=== PATIENT | female | born 1955 | race Caucasian/White ===

== ENCOUNTER → 2017-06-24 15:53 | Outpatient (CLI) | payer OTHER, SELFPAY ==
--- NOTE | 2017-06-24 16:01 | MM_ITS ---
MM Dig screening mamm BI w/CAD CAD Screening ORDERING PHYSICIAN : Keaton Webster MD PATIENT AGE: 62 years GENDER: Female HISTORY. Routine screening mammogram. No hormones . No new complaints. Prior stereotactic biopsy left breast. Family history Sibling sister with breast cancer. Age 41 COMPARISON: Previous mammograms: June 2016, June 2015, May 2014 and 201 3 . TECHNIQUE: Standard CC and MLO images were obtained. R2 CAD reviewed. FINDINGS: Mild to moderate residual thyroid gland elements in the retroareolar region bilaterally. Most evident on right. No dominant mass nor suspicious calcifications. No significant new features. Bilateral follow-up one year adequate. RIGHT BREAST: LEFT BREAST: No new findings concern The. Metallic marker from previous stereotactic biopsy at the upper outer quadrant left breast. IMPRESSION: ...... Stable bilateral mammogram with no new areas of significant concern. Bilateral follow-up in one year recommended. BI-RADS Category: 1 Negative RECOMMENDED FOLLOW-UP: 1YR - 1 YEAR FOLLOW-UP (A letter has been sent to the patient regarding results of the study.)
== END ==
PROVIDERS: PCP Physician Assistant; Visit Provider Nurse Practitioner Obstetrics & Gynecology
DX: Z12.31 Encounter for screening mammogram for malignant neoplasm of breast (principal)
CPT/HCPCS: 77067

== ENCOUNTER → 2018-07-12 15:43 | Outpatient (CLI) | payer OTHER, SELFPAY ==
--- NOTE | 2018-07-12 15:48 | MM_ITS ---
MM Dig screening mamm BI w/CAD ORDERING PHYSICIAN : Keaton Webster MD PATIENT AGE: 63 years GENDER: Female COMPARISON: June 2017, 2016, 2015, May 2014 INDICATION: ITS.REASON: Routine Screening Mammogram TECHNIQUE: Standard CC and MLO images were obtained. R2 CAD reviewed. FINDINGS: .. Minimal residual fibroglandular elements most evident at the retroareolar region extending towards upper-outer quadrant. Stable mild asymmetry with no significant new findings or change in pattern since previous studies. No dominant mass nor suspicious calcifications. RIGHT BREAST:No new areas of concern A density at the deep breast on cc view at margin of film of the present since studies dating back to at least mammogram LEFT BREAST:No new findings of significant concern . Evidence of previous percutaneous biopsy towards upper-outer quadrant with residual metallic marker here Overall stable moderate axillary lymph nodes again observed IMPRESSION: ......... Stable bilateral mammogram. No new areas of concern Bilateral follow-up one year recommended BI-RADS Category: 1 Negative RECOMMENDED FOLLOW-UP: 1YR 1 YEAR FOLLOW-UP (A letter has been sent to the patient regarding results of the study.)
== END ==
PROVIDERS: PCP Family Medicine; Visit Provider Nurse Practitioner Obstetrics & Gynecology
DX: Z12.31 Encounter for screening mammogram for malignant neoplasm of breast (principal)
CPT/HCPCS: 77067

== ENCOUNTER → 2018-11-24 07:51 | Outpatient (CLI) | payer SELFPAY ==
--- NOTE | 2018-11-24 07:53 | CT_ITS ---
PROCEDURE: CT HEART W CALCIUM SCORE CLINICAL HISTORY: SCREENING COMPARISON: No exams were available for comparison TECHNIQUE: Axial images obtained with sagittal and coronal reformats. All CT scans at the facility use one or more dose reduction, viz: automated exposure control, ma/kV adjustment per patient size (including targeted exams where dose is matched to indication, i.e. head), or iterative reconstruction technique. FINDINGS: The coronary artery calcium score is 0 with no identifiable calcified atherosclerotic plaque with very low cardiovascular disease risk. Incidental findings include some mild thickening of the pericardium suggesting small pericardial effusion measuring up to 13 mm in thickness anteriorly. There is a small hiatal hernia. Calcified nodes are present in the giuseppe and there is calcified granuloma in the right middle lobe and right lower lobe and left lower lobe IMPRESSION: No identifiable calcified atherosclerotic plaque with very low cardiovascular disease risk Thickened pericardium consistent with small pericardial effusion Small hiatal hernia Dictated by: Salinas Ibarra MD 11/24/2018 18:36 Electronically signed by Salinas Ibarra MD in [place] 11/24/2018 18:36
== END ==
PROVIDERS: PCP Family Medicine; Visit Provider Internal Medicine Cardiovascular Disease
DX: Z13.6 Encounter for screening for cardiovascular disorders (principal)
CPT/HCPCS: 75571

== ENCOUNTER → 2019-03-08 10:55 | Outpatient (CLI) | payer OTHER, SELFPAY ==
--- NOTE | 2019-03-08 10:59 | XR_ITS ---
PROCEDURE: XR CHEST 2V CLINICAL HISTORY: COUGH COMPARISON: CXR CHEST(2 VIEWS-NOT PORTABLE) from 04/11/2013 FINDINGS: The cardiomediastinal silhouette and pulmonary vascularity are within normal limits. The lungs are clear without infiltrates, suspicious nodules, or pleural effusions. There is evidence of healed granulomatous disease. No acute bony abnormalities. IMPRESSION: No acute findings. Dictated by: Joo Vivas 03/08/2019 11:12 Electronically signed by Joo Vivas in [place] 03/08/2019 11:12
== END ==
PROVIDERS: PCP Family Medicine; Visit Provider Family Medicine
DX: R05 Cough (principal)
CPT/HCPCS: 71046

== ENCOUNTER → 2019-07-02 11:19 | Outpatient (CLI) | payer OTHER, SELFPAY ==
[2019-07-02 12:05] VITALS: PULSE 83; PULSE 86
== END ==
PROVIDERS: PCP Family Medicine; Visit Provider Family Medicine
DX: R05 Cough (principal)
CPT/HCPCS: 94060; 94640

== ENCOUNTER → 2019-07-23 15:52 | Outpatient (CLI) | payer OTHER, SELFPAY ==
--- NOTE | 2019-07-23 15:52 | MM_ITS ---
PROCEDURE: MM DIG SCREENING MAMM BI W/CAD Digital Breast Tomosynthesis Included CLINICAL INDICATION: screening xmg There is a history of breast cancer in patient's sister diagnosed before menopause. There has been a previous biopsy left breast for benign disease. COMPARISON: [facility] DIG MAMM-SCREEN [facility] W/CAD from 06/17/2016 [facility] MM Dig screening mamm BI w/CAD from 06/24/2017 DIG MAMM-SCREEN [place] from 07/12/2018 TECHNIQUE: Standard CC and MLO images and 3D Tomosynthesis was obtained. R2 CAD reviewed. FINDINGS: The breasts are composed primarily of fat with minimal scattered fibroglandular densities in each breast. There is a biopsy clip left breast. There is no suspicious lesion in either breast and no suspicious microcalcifications. There are stable small nodes in both axilla. IMPRESSION: Fatty type breast parenchyma with no suspicious lesions seen BI-RAD Category: 2 Benign Finding(s) FOLLOW-UP: 1YR 1 Year Follow-up (A letter has been sent to the patient regarding results of the study.) Dictated by: Dr. Aamir Horton MD 07/24/2019 11:[address] Aamir Horton MD in [place] 07/24/2019 11:07
== END ==
PROVIDERS: PCP Family Medicine; Visit Provider Nurse Practitioner Obstetrics & Gynecology
DX: Z12.31 Encounter for screening mammogram for malignant neoplasm of breast (principal)
CPT/HCPCS: 77063; 77067

== ENCOUNTER → 2020-08-06 15:20 | Outpatient (CLI) | payer OTHER, SELFPAY ==
--- NOTE | 2020-08-06 15:20 | MM_ITS ---
PROCEDURE INFORMATION: Exam: MG Screening 3D Mammography Exam date and time: 08/06/2020 3:20 PM Age: 65 years old Clinical indication: Encounter for screening mammogram for malignant neoplasm of breast TECHNIQUE: Imaging protocol: Screening tomosynthesis and 2D mammography including computer-aided detection (CAD) when performed. COMPARISON: 1. MG MM DIG SCREENING MAMM BI W/CAD 07/23/2019 4:07 PM 2. MG DIG MAMM-SCREEN [place] 07/12/2018 4:10 PM FINDINGS: MAMMOGRAPHY: Breast composition: The breast tissue is composed of scattered areas of fibroglandular density. Mass: None. Architectural distortion: None. Calcifications: No suspicious calcifications. Asymmetric density: None. Skin thickening: None. Axillary adenopathy: None. IMPRESSION: No mammographic evidence of malignancy. Annual screening is recommended unless otherwise clinically indicated. ASSESSMENT: BI-RADS Category 1: Negative
== END ==
PROVIDERS: PCP Family Medicine; Visit Provider Nurse Practitioner Obstetrics & Gynecology
DX: Z12.31 Encounter for screening mammogram for malignant neoplasm of breast (principal)
CPT/HCPCS: 77063; 77067

== ENCOUNTER → 2021-01-10 09:46 | Outpatient (CLI) | payer OTHER, SELFPAY ==
[2021-01-10 10:26] LABS: Basophils # 0.1 K/mm3 (0-0.2); Basophils % 1.3 % (0.1-2.0); Eosinophils # 0.2 K/mm3 (0.0-0.4); Eosinophils % 3.6 % (0.1-12.0); Hematocrit 40.8 % (37.0-47.0); Hemoglobin 13.6 g/dL (12.2-16.2); Lymphocytes # 1.1 K/mm3 (0.7-4.5); Lymphocytes % 26.5 % (10-50); Mean Corpuscular HGB Conc 33.3 g/dL (31.8-35.4); Mean Corpuscular Hemoglobin 29.1 pg (27.0-31.2); Mean Corpuscular Volume 87.3 fl (81-99); Mean Platelet Volume 7.8 fl (7.4-10.4); Monocytes # 0.5 K/mm3 (0.1-1.0); Monocytes % 12.3 % (1.7-9.3); Neutrophils # 2.3 K/mm3 (1.8-7.8); Neutrophils % 56.4 % (37.0-80.0); Platelet Count 252 K/mm3 (142-424); Red Blood Count 4.67 M/mm3 (4.20-5.40); Red Cell Distribution Width 13.7 % (11.5-17.5); White Blood Count 4.1 K/mm3 (4.8-10.8)
== END ==
PROVIDERS: Visit Provider Physician Assistant
DX: J06.9 Acute upper respiratory infection, unspecified (principal)
CPT/HCPCS: 36415; 85025

== ENCOUNTER → 2021-01-10 12:25 | Outpatient (CLI) | payer OTHER, SELFPAY | PROVIDERS: PCP Family Medicine; Visit Provider Physician Assistant | DX: Z20.822 Contact with and (suspected) exposure to COVID-19 (principal); J06.9 Acute upper respiratory infection, unspecified | CPT/HCPCS: C9803; U0003; U0005 ==

== ENCOUNTER → 2021-04-15 06:41 | Outpatient (CLI) | payer OTHER, SELFPAY ==
--- NOTE | 2021-04-15 | CA_ITS ---
APPROVED REPORT Exam: Exercise Treadmill Technologist: Tsering Cisneros, Ht: 5 ft 2 in Wt: 187 lbs BSA: 1.86 m2 HR: 63 bpm BP: 152/76 mmHg Rhythm: NSR, low voltage QRS Medical History Medical History: HTN, Hyperlipidemia Medications: Omeprazole,,,,, Simvastatin,,,,, Losartan,,,,, HCTZ,,,,, Albuterol,,,,, Flovent,,,,, Cardiac Risk Factors: HTN, Hyperlipidemia, FHX of CAD, Smoking Stress Test Details Test: Rich HR Resting HR: 70 bpm Max Heart Rate (APMHR): 154.507744 bpm Max HR Achieved: 141 bpm Target HR (85% APMHR): 130.684191 bpm % of APMHR: 91.56 Recovery HR: 106 bpm BP Resting BP: 138/71 mmHg Max BP: 208/80 mmHg Recovery BP: 208.0/80.0 mmHg ECG Resting ECG: NSR, low voltage QRS Clinical Exercise duration: 07:00 min Highest Stage Achieved: Exercise capacity: 10.1 METs Stress ECG Conclusion During rich protocol pt walked total of 7 minutes. Pt experinced dyspnea, no CP noted. No arrthymias noted. 1mm slightly upsloding ST depression in leads V5 and V6. Equivocal EKG changes. Myoview images reported separately. Test Summary REST . . . . . . . Sitting REST . . . . . . . Standing REST 04:06 0.0 0.0 70 . 138/ 71 . . Stage 1 01:00 10.0 1.7 91 . . . . Stage 1 02:00 10.0 1.7 112 . . . . Stage 1 03:00 10.0 1.7 115 . 182/ 75 . . Stage 2 01:00 12.0 2.5 121 . . . . Stage 2 02:00 12.0 2.5 129 . . . . Stage 2 03:00 12.0 2.5 130 . 200/ 70 . . Stage 3 01:00 14.0 3.4 140 . . . Stop exercise at 07:00 RECOVERY 01:00 0.0 0.0 109 . . . . RECOVERY 02:00 0.0 0.0 93 . 208/ 80 . . RECOVERY 03:00 0.0 0.0 78 . 202/ 66 . . RECOVERY 04:00 0.0 0.0 76 . 202/ 66 . . RECOVERY 05:00 0.0 0.0 75 . 202/ 66 . . RECOVERY 06:00 0.0 0.0 74 . 170/ 67 . . RECOVERY 07:00 0.0 0.0 71 . 170/ 67 . . RECOVERY 07:55 0.0 0.0 70 . 171/ 57 . . Electronically signed by : Nathen Grewal MD 04/15/2021 19:55:47
--- NOTE | 2021-04-15 06:52 | NM_ITS ---
APPROVED REPORT Exam: Nuclear Stress Test Indication: SOB, Palpitations, HTN, High cholesterol, Family history Patient Location: Outpatient Stress Tech: Tsering Brady [place] Tech:Pili Sifuentes, ARRT, RT (R)(N) Ht: 5 ft 2 in Wt: 198 lbs Bra Size: 40C HR: 70 bpm BP: 138/71 mmHg BSA: 1.90 m2 BMI: 36.2 History: SOB, Palpitations, HTN, High cholesterol, Family history Procedure: Patient exercised on Jordi protocol 7:00 minutes and sec, resting heart rate 70 bpm, resting blood pressure 138/71 mmHg, with exercise maximum heart rate achived was 141 bpm which is 92 % of the maximum predicted heart rate and blood pressure was 208/80 mmHg. Test was stopped due to SOB and leg fatigue. Patient denied any complaint of chest pain. Patient has good exercise capacity, achieved 10.1 METs of workload on treadmill, the blood pressure response to exercise was Hypertensive. Electrocardiogram Resting electrocardiogram shows sinus rhythm, with exercise there is less than 1.[address] segment depression noted from the baseline EKG. The EKG portion of the exercise Myoview is negative for ischemia. Cardiac Stress and Resting SPECT Images: Cardiac Stress and Resting SPECT images were obtained using technetium 99m Myoview 31.1 mCi stress and 10.37 mCi at rest. Gated SPECT for analysis of segmental wall motion and calculation of the ejection fraction also done. Cardiac stress and resting SPECT images show uniform myocardial activity without segmental perfusion abnormality, compared right ejection fraction is 61% with no regional wall motion abnormality, right ventricle is normal size and contractility. Conclusion: 1. The EKG portion of the exercise Myoview is negative for ischemia, patient has good exercise capacity achieved 10.1 METs of workload treadmill, the blood pressure response to exercise was hypertensive, there was no exercise-induced chest discomfort. 2. No scintigraphic evidence of reversible ischemia seen at this level of exercise, compared right ejection fraction is 61% with no regional wall motion abnormality, right ventricle is normal size and contractility. 3. Normal exercise Myoview study except for hypertensive blood pressure response. Electronically signed by : Nathen Grewal MD 04/15/2021 20:11:02
--- NOTE | 2021-04-15 08:35 | HMH.ITSHM ---
Current Home Medications as stated by this patient Joselin Reece or promotional representative. []SIMVASTATIN PHENTERMINE OMEPRAZOLE LOSARTAN HCTZ FLUTICASONE ALBUTEROL
== END ==
PROVIDERS: PCP Family Medicine; Visit Provider Family Medicine
DX: R07.89 Other chest pain (principal)
CPT/HCPCS: 78452; 93017; A9502

== ENCOUNTER → 2021-08-07 07:55 | Outpatient (CLI) | payer OTHER, SELFPAY ==
--- NOTE | 2021-08-07 07:55 | MM_ITS ---
PROCEDURE INFORMATION: Exam: MG Bilateral Screening 3D Mammography Exam date and time: 08/07/2021 7:57 AM Age: 66 years old Clinical indication: Screening examination TECHNIQUE: Imaging protocol: Bilateral Screening tomosynthesis and 2D mammography including computer-aided detection (CAD) when performed. COMPARISON: 1. MG MM DIG SCREENING MAMM BI W/CAD 08/06/2020 3:20 PM 2. MG MM DIG SCREENING MAMM BI W/CAD 07/23/2019 4:07 PM FINDINGS: MAMMOGRAPHY: Breast composition: There are scattered areas of fibroglandular density. Mass: None. Architectural distortion: None. Calcifications: No suspicious calcifications. Asymmetric density: None. Skin thickening: None. Axillary adenopathy: None. IMPRESSION: No mammographic evidence of malignancy. Annual screening is recommended unless otherwise clinically indicated. ASSESSMENT: BI-RADS Category 1: Negative
== END ==
PROVIDERS: PCP Family Medicine; Visit Provider Nurse Practitioner Obstetrics & Gynecology
DX: Z12.31 Encounter for screening mammogram for malignant neoplasm of breast (principal)
CPT/HCPCS: 77063; 77067

== ENCOUNTER → 2022-07-09 09:15 | Outpatient (CLI) | payer MEDICARE, OTHER, SELFPAY ==
--- NOTE | 2022-07-09 09:19 | XR_ITS ---
FINAL REPORT TECHNIQUE: Bone densitometry calculations of the lumbar spine and left hip were obtained. CLINICAL HISTORY: post menopausal FINDINGS: Using L1-4, the bone mineral density of the spine is 1.004 g/cm2, corresponding to T-score of -0.4. Using the left hip, the bone mineral density of the femoral neck is 0.957 g/cm2, corresponding to a T-score of 0.1. Using the right hip, the bone mineral density of the femoral neck is 0.895 g/cm2, corresponding to a T-score of 0.4. NOTE: T-score: Standard deviation compared with peak bone mass of young adult mean. *Following the recommendations of the International Society of Bone densitometry, classification of hip BMD is based on the lower of two T-scores; total hip or femoral neck. IMPRESSION: Normal bone mineral density of the lumbar spine and hip. FRAX was not reported because all of the T-scores are at or above -1.0. Reviewed, Interpreted and Dictated by Micha Paris MD Transcribed by Lianna Laguerre Authenticated and [facility]
== END ==
PROVIDERS: PCP Physician Assistant; Visit Provider Family Medicine
DX: Z78.0 Asymptomatic menopausal state (principal)
CPT/HCPCS: 77080

== ENCOUNTER → 2022-07-13 10:20 | Outpatient (CLI) | payer MEDICARE, OTHER, SELFPAY ==
--- NOTE | 2022-07-13 10:23 | XR_ITS ---
FINAL REPORT CLINICAL HISTORY: trigger thumb COMPARISON: None FINDINGS: RIGHT HAND Three views demonstrate no acute fracture or dislocation. There are mild degenerative changes of the distal interphalangeal and proximal interphalangeal joints. There is moderate degenerative change of the 1st interphalangeal joint. Osteophytes are present in multiple digits compatible with mild to moderate osteoarthritis. The soft tissues are unremarkable. IMPRESSION: No acute bony abnormality. Degenerative changes as described above. Reviewed, Interpreted and Dictated by Micha Paris MD Transcribed by Lennie Mcgee Authenticated and [facility]
== END ==
PROVIDERS: PCP Family Medicine; Visit Provider Orthopaedic Surgery
DX: M65.30 Trigger finger, unspecified finger (principal)
CPT/HCPCS: 73130

== ENCOUNTER → 2022-10-15 12:48 | Outpatient (CLI) | payer MEDICARE, OTHER, SELFPAY ==
--- NOTE | 2022-10-15 12:48 | MM_ITS ---
PROCEDURE INFORMATION: Exam: MG Bilateral Screening 3D Mammography Exam date and time: 10/15/2022 12:53 PM Age: 67 years old Clinical indication: Screening mammogram. Family history of breast cancer in sister; Sister's age: 41 years TECHNIQUE: Imaging protocol: Bilateral Screening tomosynthesis and 2D mammography including computer-aided detection (CAD) when performed. COMPARISON: 1. MG MM DIG SCREENING MAMM BI W/CAD 08/07/2021 7:57 AM 2. MG MM DIG SCREENING MAMM BI W/CAD 08/06/2020 3:20 PM 3. MG MM DIG SCREENING MAMM BI W/CAD 07/23/2019 4:07 PM 4. MG DIG MAMM-SCREEN [place] 07/12/2018 4:10 PM FINDINGS: MAMMOGRAPHY: Breast composition: There are scattered areas of fibroglandular density. Mass: None. Architectural distortion: No new or suspicious architectural distortion. Calcifications: No new or suspicious calcifications are present Asymmetric density: No new or suspicious asymmetric density is present Skin thickening: None. Axillary adenopathy: None. IMPRESSION: No mammographic evidence of malignancy. Recommend annual screening mammography unless otherwise clinically indicated. ASSESSMENT: BI-RADS category 1: Negative
== END ==
PROVIDERS: PCP Family Medicine; Visit Provider Nurse Practitioner Obstetrics & Gynecology
DX: Z12.31 Encounter for screening mammogram for malignant neoplasm of breast (principal)
CPT/HCPCS: 77063; 77067

== ENCOUNTER → 2022-11-03 10:07 | Outpatient (CLI) | payer MEDICARE, OTHER, SELFPAY ==
[2022-10-13 14:06] LABS: Basophils % 0.7 % (0.1-2.0); Eosinophils # 0.1 K/mm3 (0.0-0.4); Eosinophils % 3.2 % (0.1-12.0); Hematocrit 40.1 % (37.0-47.0); Hemoglobin 13.4 g/dL (12.2-16.2); Lymphocytes # 1.1 K/mm3 (0.7-4.5); Lymphocytes % 25.1 % (10-50); Mean Corpuscular HGB Conc 33.3 g/dL (31.8-35.4); Mean Corpuscular Hemoglobin 29.3 pg (27.0-31.2); Mean Corpuscular Volume 88.1 fl (81-99); Mean Platelet Volume 7.9 fl (7.4-10.4); Monocytes # 0.4 K/mm3 (0.1-1.0); Neutrophils # 2.8 K/mm3 (1.8-7.8); Neutrophils % 62.9 % (37.0-80.0); Platelet Count 281 K/mm3 (142-424); Red Blood Count 4.56 M/mm3 (4.20-5.40); Red Cell Distribution Width 13.3 % (11.5-17.5); White Blood Count 4.5 K/mm3 (4.8-10.8)
[2022-10-13 14:23] LABS: Chol/HDL Ratio 3.4 (1-3.5); Cholesterol 192 mg/dl (140-200); HDL Cholesterol 57 mg/dl (40-60); Triglycerides 95 mg/dl (30-150); VLDL Cholesterol 19 mg/dL (0-40)
[2022-10-13 14:41] LABS: 25-OH Vitamin D, Total 22.5 ng/mL (30-100)
[2022-10-13 14:56] LABS: Thyroid Stimulating Hormone 2.07 uIU/mL (0.465-4.68)
[2022-10-14 00:28] LABS: Hemoglobin A1C 5.6 % (4.0-6.0)
== END ==
PROVIDERS: PCP Emergency Medicine; Visit Provider Emergency Medicine
DX: E66.9 Obesity, unspecified (principal); Z68.34 Body mass index [BMI] 34.0-34.9, adult; R73.03 Prediabetes; E55.9 Vitamin D deficiency, unspecified
CPT/HCPCS: 80061; 82306; 83036; 84443; 85025

== ENCOUNTER 2023-05-19 09:00 | Day surgery (SDC) | payer MEDICARE, OTHER, SELFPAY ==
[2023-05-16 14:14] VITALS: BMI 34.4
[2023-05-19 09:14] VITALS: BP 159/77; PULSE 63; RESP 18; TEMP 36.2; O2SAT 97
[2023-05-19] MEDS: LACTATED RINGERS 1000ML 1,000 ML 100 ML IV (09:24)
--- NOTE | 2023-05-19 09:44 | EXP.ANES.CKL ---
[facility] Disclaimer: The information contained in this section may have been updated after the patient was seen, as this information can be updated by other users. Medical History Anxiety and depression History of trigger finger History of gastroesophageal reflux (GERD) Hyperlipidemia Hypertension BMI 36.0-36.9,adult Surgical History Hx of tubal ligation History of cholecystectomy History of appendectomy Family History Other Brain tumor Cancer Social History Smoking Status: Former smoker tobacco type: cigarettes alcohol intake: current substance use type: denies use current occupational status: retired Travel in the last 8 weeks: None housing: house caffeine: Yes [facility] Anesthesia Checklist Patient Identification Patient Identification: Arm Band, Family and Verbal (Name & ) Structural Data Admitted From: Home Planned Operative Procedure/s: Colonoscopy Consent for Planned Operative Procedure(s) Verified: Yes Verified Documents: Surgical Consent and History and Physical NPO Status Verified Time NPO: 04:30 Chart Verification Results Verified: CBC and Chest Xray Additional verifications Patient : No Anesthesia Reactions: No Cardiovascular Assessment Heart Sounds: S1 & S2 Pulse Rhythm: Irregular Peripheral Edema: No Airway Assessment Mallampati Score:: Class II C-Spine Mobility Assessed: Yes (FROM) TMJ Mobility Assessed: Yes Dentition: Good Dentition (Nothing loose per pt.) Neurological Assessment Level of Consciousness: Awake, Alert, Appropriate and Follows Commands Hx Seizures: No Numbness or tingling in extremities: No Anesthesia Plan Anesthesia Risk discussed: Yes Anesthesia Plan: Verified ASA Class: III Anesthesia Type: MAC
[2023-05-19 10:12] VITALS: O2SAT 100
--- NOTE | 2023-05-19 10:23 | HMH.SCOPE ---
Procedure: Date: 05/19/23 Patient Date of :: 1955 Procedure Performed:: Screening colonoscopy Indications:: Personal history of polyps Performing Provider:: Alia Campoverde MD Referring Provider:: Zachary Luevano MD Sedation:: Propofol Procedure:: After placing the patient in the left lateral decubitus position, the colonoscopy was gently inserted into the rectum and under direct visualization advanced to the cecum which was identified by transillumination in the right lower quadrant, identification of the ileocecal valve, appendiceal orifice, and cecal strap. Color, texture, mucosa, and anatomy of the colon were carefully examined with the scope. Findings:: Anal canal: normal Rectum: normal Sigmoid colon: normal without polyps or inflammatory changes, diverticulosis Descending colon: normal without polyps or inflammatory changes Splenic flexure: normal Transverse colon: normal without polyps or inflammatory changes Hepatic flexure: normal Ascending colon: normal without polyps or inflammatory changes Cecum: normal Terminal ileum: not visualized Impression: Sigmoid diverticulosis otherwise normal colonoscopy exam Recommendations:: Follow up examination in about FIVE years or so, sooner if clinically indicated in view of history of polyps. Complications:: None Estimated blood obtained (mL): 0 Colonoscopy Component Colonoscopy Component Was a colonoscopy performed during today's procedure?: Yes Recommended follow up colonoscopy of at least 10 years?: No If no, follow up colonoscopy recommended in ___ years?: Five Reason for not recommending >/= 10 yr follow-up interval?: Hx of polyps
[2023-05-19 10:24] VITALS: BP 105/55; PULSE 71; RESP 18; TEMP 36.4; O2SAT 95
[2023-05-19 10:34] VITALS: BP 103/53; PULSE 67; RESP 16; O2SAT 94
[2023-05-19 10:44] VITALS: BP 108/49; PULSE 69; RESP 16; O2SAT 96
[2023-05-19 10:54] VITALS: BP 110/61; PULSE 73; RESP 16; TEMP 36.7; O2SAT 98
== END 2023-05-19 10:54 | disposition home or self-care (01) ==
PROVIDERS: PCP Family Medicine; Visit Provider Internal Medicine Gastroenterology
PROC: (CPT G0105; principal; 2023-05-19 10:00)
DX: Z12.11 Encounter for screening for malignant neoplasm of colon (principal); Z86.010 Personal history of colon polyps; K57.30 Diverticulosis of large intestine without perforation or abscess without bleeding
CPT/HCPCS: G0105

== ENCOUNTER 2023-11-15 07:50 | Outpatient (CLI) | payer MEDICARE, OTHER, SELFPAY ==
--- NOTE | 2023-11-15 07:53 | MM_ITS ---
PROCEDURE INFORMATION: Exam: MG Bilateral Screening 3D Mammography Exam date and time: 11/15/2023 7:54 AM Age: 68 years old Clinical indication: Screening examination TECHNIQUE: Imaging protocol: Bilateral Screening tomosynthesis and 2D mammography including computer-aided detection (CAD) when performed. COMPARISON: 1. MG MM DIG SCREENING MAMM BI W/CAD 10/15/2022 12:53 PM 2. MG MM DIG SCREENING MAMM BI W/CAD 08/07/2021 7:57 AM FINDINGS: MAMMOGRAPHY: Breast composition: There are scattered areas of fibroglandular density. Mass: No suspicious masses. Architectural distortion: None. Calcifications: No suspicious calcifications. Asymmetric density: None. Skin thickening: None. Axillary adenopathy: None. IMPRESSION: No mammographic evidence of malignancy. Annual screening is recommended unless otherwise clinically indicated. ASSESSMENT: BI-RADS Category 1: Negative.
== END 2023-11-15 23:59 | disposition home or self-care (01) ==
LOC: RAD 07:51
PROVIDERS: PCP Family Medicine; Visit Provider Family Medicine
DX: Z12.31 Encounter for screening mammogram for malignant neoplasm of breast (principal)
CPT/HCPCS: 77063; 77067

== ENCOUNTER 2024-09-12 08:22 | Outpatient (CLI) | payer MEDICARE, OTHER, SELFPAY ==
--- OUTSIDE RECORDS SUMMARY | 2024-05-11 05:15 | XMS_ITS ---
Author Organization [facility] Address [address] [place] [id number] Care Team Providers Care Leather Scraper Name Role Phone Esteban Smith Primary Care Provider Zachary Luevano Unavailable [phone] Allergies Allergen (clinical drug ingredient) Drug/Non Drug Allergy documented on EMR Reaction Allergy Type Onset Date Status Oxytetracycline HCl Unknown Drug Allergy Active Adhesive Unknown Allergy Active codeine Codeine Unknown Drug Allergy Active Results Component Value Reference Range Notes Glucose (In-House) Reviewed date:05/13/2024 11:44:25 AM Interpretation:121 Performing Lab: Notes/Report: 121 blood glucose 121 74 - 106 mg/dL P-Comprehensive Metabolic Pa saida ([facility]) Reviewed date:05/13/2024 11:44:25 AM Interpretation: Normal Performing Lab: Notes/Report: Test performed by [facility] , [address], [place] [address] Michael Rabago MD, Manager Cost CLIA: [id number] Sodium 142 135-145 mmol/L Potassium 4.3 3.5-5.3 [...] Interpretation:5.8 Performing Lab: Notes/Report: Test performed by [facility] [address] [place] [address] [address] C, [place] [address] Michael Rabago MD, Manager Cost CLIA: [id number] Hemoglobin A1C 5.8 <5.7 % The following HbA1c ranges recommended by the [place] [employer] (ADA) may be used as an aid in the diagnosis of diabetes mellitus. HbA1c Suggested Diagnosis >=6.5% Diabetic 5.7% - 6.4% Pre-Diabetic <5.7% Non-Diabetic P-Lipid Panel Reviewed date:05/13/2024 11:44:25 AM Interpretation:chol 207, non-hdl 148 Performing Lab: Notes/Report: Test performed by [facility] [address] [place] [address] [address], [place] [address] Michael Rabago MD, Manager Cost CLIA: [id number] Cholesterol 207 <200 mg/dL Triglycerides 106 <150 [...] Normal Performing Lab: Notes/Report: Test performed by [facility] [address] [place] [address] , [place] [address] Michael Rabago MD, Manager Cost CLIA: [id number] TSH reflex to FT4 3.36 0.43-5.25 mU/L P-Microalbumin/Creatinine, R andom Urine Sample Reviewed date:05/13/2024 11:44:25 AM Interpretation: Normal Performing Lab: Notes/Report: Test performed by [facility] [address] [place] [address] , [address], [place] [address] Michael Rabago MD, Manager Cost CLIA: [id number] Albumin/Creatinine Ratio, Urine 5 0-30 ug/m g Microalbumin, Urine, Random 0.7 Creatinine, Urine 140.2 P-Vitamin D 25-Hydroxy Reviewed date:05/13/2024 11:44:25 AM Interpretation: Normal Performing Lab: Notes/Report: Test performed by [facility], [address] , [address], [place] [address] Michael Rabago MD, Manager Cost CLIA: [id number] Vitamin D 25-Hydroxy 64.7 30.0-100.0 ng/mL Interpretation of Vitamin D 25 OH: < 20 ng/mL - Deficiency 20 - 29 ng/mL - Insufficiency 30 - 100 ng/mL - Sufficiency > 100 ng/mL - Super-therapeutic- toxicity may occur above this level. Clinical correlation required. Estimated Average Glucose Reviewed date:05/13/2024 11:44:25 AM Interpretation: Normal Performing Lab: Notes/Report: Test performed by [facility] [address] [place] [address] , [address], [place] [address] Michael Rabago MD, Manager Cost CLIA: [id number] Estimated Average Glucose (eAG) 120 Estimated Average [...] Duration: 90 days Active Vitamin D (Ergocalciferol) 03432 UNIT 1 capsule Orally Once Weekly Active [...] [address] [place], [place] [id number] 05/11/2024 Zachary Luevano Essential hypertensi on, hypertension [...] 6 Months, Reason: Provider Name:Zachary Matthews , 11/12/2024 09:30:00 AM, [address] [facility], [address], [place], [place], [id number], Progress Notes * ROSITA CHAVEZ ADOB:[birth year] (69 yo F)Acc No.[id number]:05/11/2024 Progress Notes Patient: ROSITA MONSON Provider: Carlota Luevano M.D. 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 * Surgical History: T ubal Ligation 1993, Appendectomy 1974, EGD 2011, Cholecystectomy 12/13/2011, Colonoscopy - 1 Polyp 07/2017, Trigger Thumb Steriod Injection 08/2017, Trigger Thumb Release 01/24/2018. * Hospitalization/Major Diagno stic Procedure: C hest Pains,Esophagal Spasms- [facility] 04/11/2013. * Family History: F [...] ONCE DAILY , Taking Vitamin D (Ergocalciferol) 83674 UNIT Capsule 1 capsule Orally Once Weekly [...] stimated Average Glucose 120 - mg/dL * [facility], support 05/12/2024 04:20:06 : This order was created by the Interface. Anh De Jesus 05/13/2024 11:44:17 AM >See phone encounter * Procedure Codes: G 2211 Complex e/[place], [address] GLUCOSE TEST, 3044F HG A1C LEVEL LT 7.0%, 3074F SYST BP LT 130 MM HG, 3078F DIAST BP < 80 MM HG * Follow Up: 6 Months * Images: Billing Information: * Visit Code: 70521 Office Visit, Est Pt., Level 4. * Procedure Codes: G2211 Complex e/[place]. [address] GLUCOSE TEST. 3044F HG A1C LEVEL LT 7.0%. 3074F SYST BP LT 130 MM HG. 3078F DIAST BP < 80 MM HG. * Electronic signature of Melisa Luevano MD on 09/12/2024 at 08:27 AM EDT Sign off status: Pending * Provider: Carlota Luevano M.D. Date: 0 05/11/2024 Generated for Eliezer martin/Val/eTransmitting on: 0 09/12/2024 08:27 AM EDT History and Physical Notes * [...]
--- OUTSIDE RECORDS SUMMARY | 2024-05-21 06:30 | XMS_ITS ---
Author Organization [facility] Address [address] [place] [id number] Care Team Providers Care Title Specialist Name Role Phone Esteban Smith Primary Care Provider Zachary Luevano Unavailable [phone] Liza Dumont Unavailable [phone] Allergies Allergen (clinical drug ingredient) Drug/Non Drug Allergy documented on EMR Reaction Allergy Type Onset Date Status Oxytetracycline HCl Unknown Drug Allergy Active Adhesive Unknown Allergy Active codeine Codeine Unknown Drug Allergy Active REASON FOR VISIT sinus, drainage Medications Medication SIG (Take, Route, Frequency, Duration) Notes Start Date End Date Status Simvastatin 40 MG TAKE 1 TABLET ONCE D AILY INTHE EVENING AT BEDTIME; Duration: 90 days Active Ziprasidone HCl 20 MG TAKE 1 CAPSULE ONC E DAILY WITH FOOD; Duration: 90 days Active Irbesartan-hydroCHLOROthiaz terese 300-12.5 MG TAKE 1 TABLET ONCE DAILY; Duration: 90 days Active Medrol 4 MG as directed orally d aily; Duration: 6 days 05/21/2024 Active Metoprolol Succinate ER 50 MG TAKE 1 TABLET ONCE DAILY; Duration: 90 days Active Cefuroxime Axetil 500 MG 1 tablet Orally every 12 hrs; Duration: 10 day(s) 05/21/2024 Active Vitamin D (Ergocalciferol) 72101 UNIT 1 capsule Orally Once Weekly Active Voquezna 10 MG 1 tablet Orally Once a day; Duration: 30 day(s) 05/11/2024 Active Vital Signs Blood pressure systolic 124 mm Hg 05/22/19 25 Blood pressure diastolic 76 mm Hg 025 Heart Rate 57 /min 05/21/2024 Height 62.50 in 05/21/2024 Weight 184.2 lbs 05/21/2024 BMI 33.15 kg/m2 05/21/2024 Encounters Encounter Location Date Provider Diagnosis [facility] [address] [place] [address] 36 [facility] [address] [place], [place] [id number] 05/21/2024 Liza Dumont Sinusitis, acute J01.90 Assessments Encounter Date Diagnosis (ICD Code) Assessment Notes Treatment Notes Treatment Clinical Notes Section Notes 05/21/2024 Sinusitis, acute (ICD-10 - J01.90) fluids, rest, supportive measures for fever/symptom relief Plan Of Treatment Medication Medication Name Sig Start Date Stop Date Notes Medrol 4 MG as directed orally d aily; Duration: 6 days 05/21/2024 Cefuroxime Axetil 500 MG 1 tablet Orally every 12 hrs; Duration: 10 day(s) 05/21/2024 Treatment Notes Assessment Notes Sinusitis, acute fluids, rest, suppor tive measures for fever/symptom relief Next Appt Details Follow Up: prn, Reason: Provider Name:Zachary Matthews ry, 11/12/2024 09:30:00 AM, [address] [place] [address] 36 [facility], [address], [place], [place], [id number], Progress Notes * KATHYROSITA ADOB:[birth year] (69 yo F)Acc No.[id number]:05/21/2024 Progress Notes Patient: ROSITA MONSON Provider: ROSALINO Stone :1955 A ge:69 Y S ex:Female Date:05/21/2024 Address:[address] [place] [phone] Pcp:Esteban Smith Subjective: * Chief Complaints: * 1 . Sinus, drainage. * HPI: E NT/respiratory: 69 year old female presents with c/o cough P t sts she has had a cough due to the drainage. c/o nasal congestion P t sts she has some congestion and some pressure under her eyes in her cheeks . c/o post nasal drainage. c/o facial pain/pressure. Denies : sore throat. D enies : Fever. D enies : ear pain. D enies : headache. D enies : smoking. D enies : body aches. Pt sts her congestion started in March and sts it has just not gone away. Pt sts she does use Flonase every day and has used Robitussin at times for her cough; had a cold in03/2024. * ROS: D ERMATOLOGY: no R tia. n o H phyllis. G ASTROENTEROLOGY: no N ausea. n o V omiting. U ROLOGY: no D ifficulty urinating. n o B lood in urine. 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 * Surgical History: T ubal Ligation 1993, Appendectomy 1974, EGD 2011, Cholecystectomy 12/13/2011, Colonoscopy - 1 Polyp 07/2017, Trigger Thumb Steriod Injection 08/2017, Trigger Thumb Release 01/24/2018. * Hospitalization/Major Diagno stic Procedure: C hest Pains,Esophagal Spasms- [facility] 04/11/2013. * Family History: F ather: [...] * Medications: T aking Vitamin D (Ergocalciferol) 35906 UNIT Capsule 1 capsule Orally Once Weekly , Taking Simvastatin 40 MG Tablet TAKE 1 TABLET ONCE DAILY INTHE EVENING AT BEDTIME , Taking Metoprolol Succinate ER 50 MG Tablet Extended Release 24 Hour TAKE 1 TABLET ONCE DAILY , Taking Irbesartan-hydroCHLOROthiazide 300-12.5 MG Tablet TAKE 1 TABLET ONCE DAILY , Taking Ziprasidone HCl 20 MG Capsule TAKE 1 CAPSULE ONCE DAILY WITH FOOD , Taking Voquezna 10 MG Tablet 1 tablet Orally Once a day , Medication List reviewed and reconciled with the patient * Allergies: C odeine, Oxytetracycline HCl, Adhesive. Objective: * Vitals: W t: 184.2, Temp: 98.6, BP: 124/76, HR: 57, O2 Sat: 98% on RA, Nurse: zenobia, Ht: 62.50, BMI:33.15. * Examination: E NT/Respiratory: General Appearance: well nourished and hydrated, NAD, alert, active. E yes: sclera and conjunctiva clear. E ars: auditory canals normal bilaterally, tympanic membranes normal bilaterally. N ose : nares patent. S inuses : tender maxillary sinuses bilaterally. O ral cavity : no erythema or exudate seen on pharynx. N bacilio : supple, no cervical lymphadenopathy. H eart : RRR. L ungs:? CTAB A&P. Assessment: * Assessment: 1. S inusitis, acute - J01.90 (Primary) Plan: * Treatment: * Procedure Codes: G 2211 Complex e/m visit add on, 3074F SYST BP LT 130 MM HG, 3078F DIAST BP < 80 MM HG * Follow Up: p rn * Images: Billing Information: * Visit Code: 42147 Office Visit, Est Pt., Level 3. * Procedure Codes: G2211 Complex e/m visit add on. 3074F SYST BP LT 130 MM HG. 3078F DIAST BP < 80 MM HG. * Electronic signature of Jackie Dumont APRN on 09/12/2024 at 08:26 AM EDT Sign off status: Pending * Provider: ROSALINO Stone Date: 0 05/21/2024 Generated for Eliezer martin/Val/Katitting on: 0 09/12/2024 08:26 AM EDT History and Physical Notes * HPI (History of Present Illness) Category Sub-Category Detail Notes Category Not es ENT/respiratory sore throat Pt sts her c ongestion started in March and sts it has just not gone away. Pt sts she does use Flonase every day and has used Robitussin at times for her cough; had a cold in03/2024 facial pain/pressure ear pain cough Pt sts she has had a cough due to the drainage Fever post nasal drainage headache nasal congestion Pt sts she has some congestion and some pressure under her eyes in her cheeks smoking body aches Examination Category Sub-Category Detail Notes Category Not es ENT/Respiratory Oral cavity : no erythema or exudate s een on pharynx Sinuses : tender maxillary sin uses bilaterally Ears: auditory canals norm al bilaterally, tympanic membranes normal bilaterally Neck : supple, no cervical lymphadenopathy Heart : RRR Lungs: CTAB A&P General Appearance: well nourished and h ydrated, NAD, alert, active Nose : nares patent Eyes: sclera and conjuncti va clear
--- OUTSIDE RECORDS SUMMARY | 2024-06-22 07:45 | XMS_ITS ---
Author Organization [facility] Address [address] [place] [id number] Care Team Providers Care English Teacher Name Role Phone Esteban Smith Primary Care Provider RiverdaleZachary roland Unavailable [phone] Allergies Allergen (clinical drug ingredient) Drug/Non Drug [...] Duration: 90 days Active Vitamin D (Ergocalciferol) 29785 UNIT 1 capsule Orally Once Weekly; Duration: 90 days Active Simvastatin 40 MG TAKE 1 TABLET ONCE D AILY INTHE EVENING AT BEDTIME; Duration: 90 days Active Omeprazole 40 MG 1 capsule 1/2 to 1 h our before morning meal Orally Once a day Active Vital Signs Blood pressure systolic 120 mm Hg 06/23/19 25 Blood pressure diastolic 80 mm Hg 025 Heart Rate 80 /min 06/22/2024 Height 62.50 in 06/22/2024 Weight 185 lbs 06/22/2024 BMI 33.29 kg/m2 06/22/2024 Encounters Encounter Location Date Provider Diagnosis [facility] [address] [place] [phone] 06/22/2024 Zachary Luevano Iliotibial band syndrome of [...] rt progress, Reason: Provider Name:Zacharytasia Matthews ry, 11/12/2024 09:30:00 AM, [address], [address], [place], [place], [phone], Progress Notes * ROSITA CHAVEZ ADOB:[birth year] (69 yo F)Acc No.[id number]:06/22/2024 Progress Notes Patient: ROSITA MONSON Provider: Carlota Luevano M.D. 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 * Surgical History: T ubal Ligation 1993, Appendectomy 1974, EGD 2011, Cholecystectomy 12/13/2011, Colonoscopy - 1 Polyp 07/2017, Trigger Thumb Steriod Injection 08/2017, Trigger Thumb Release 01/24/2018. * Hospitalization/Major Diagno stic Procedure: C hest Pains,Esophagal Spasms- [facility] 04/11/2013. * Family History: F [...] a day , Taking Vitamin D (Ergocalciferol) 29389 UNIT Capsule 1 capsule Orally Once Weekly [...] * Images: Billing Information: * Visit Code: 09757 Office Visit, Est Pt., Level 3. * Procedure Codes: G2211 Complex e/m visit add on. 3074F SYST BP LT 130 MM HG. 3079F DIAST BP 80-89 MM HG. * Electronic signature of Melisa Luevano MD on 09/12/2024 at 08:27 AM EDT Sign off status: Pending * Provider: Carlota Luevano M.D. Date: 0 06/22/2024 Generated for Eliezer martin/Val/Katitting on: 0 09/12/2024 08:27 AM EDT History [...]
--- OUTSIDE RECORDS SUMMARY | 2024-09-12 08:27 | XMS_ITS | Patient Health Record ---
Author Organization [facility] Address [address] [place] [id number] Care Team Providers Care Tester Armature Or Fields Name Role Phone Esteban Smith Primary Care Provider Livier Luevanoian Unavailable [phone] Liza Dumont Unavailable [phone] Allergies Allergen (clinical drug ingredient) Drug/Non Drug Allergy documented on EMR Reaction Allergy Type Onset Date Status Oxytetracycline HCl Unknown Drug Allergy Active Adhesive Unknown Allergy Active codeine Codeine Unknown Drug Allergy Active Results Component Value Reference Range Notes Glucose (In-House) Reviewed date:05/13/2024 11:44:25 AM Interpretation:121 Performing Lab: Notes/Report: 121 blood glucose 121 74 - 106 mg/dL P-Comprehensive Metabolic Pa saida (CMP) Reviewed date:05/13/2024 11:44:25 AM Interpretation: Normal Performing Lab: Notes/Report: Test performed by [facility] , [address], [place] [address] Michael Rabago MD, Ball Points Inspector CLIA: [id number] Sodium 142 135-145 mmol/L Potassium 4.3 3.5-5.3 [...] Interpretation:5.8 Performing Lab: Notes/Report: Test performed by [facility] [address] [place] [address] [address], [place] [address] Michael Rabago MD, Ball Points Inspector CLIA: [id number] Hemoglobin A1C 5.8 <5.7 % The following HbA1c ranges recommended by the [place] [employer] (ADA) may be used as an aid in the diagnosis of diabetes mellitus. HbA1c Suggested Diagnosis >=6.5% Diabetic 5.7% - 6.4% Pre-Diabetic <5.7% Non-Diabetic P-Lipid Panel Reviewed date:05/13/2024 11:44:25 AM Interpretation:chol 207, non-hdl 148 Performing Lab: Notes/Report: Test performed by [facility] [address] [place], [place] [address] [facility] [place] [address], [place] [address] Michael Rabago MD, Ball Points Inspector CLIA: [id number] Cholesterol 207 <200 mg/dL Triglycerides 106 <150 [...] Results: 118 Units: mg/dL % Change: - ------- Test Date: 05/11/2024 LDL Results: 127 Units: mg/dL % Change: +7% P-TSH reflex to FT4 Reviewed date:05/13/2024 11:44:25 AM Interpretation: Normal Performing Lab: Notes/Report: Test performed by [facility] [address] [place], [place] [address] [facility] [place] , [place] [address] Michael Rabago MD, Ball Points Inspector CLIA: [id number] TSH reflex to FT4 3.36 0.43-5.25 mU/L P-Microalbumin/Creatinine, R andom Urine Sample Reviewed date:05/13/2024 11:44:25 AM Interpretation: Normal Performing Lab: Notes/Report: Test performed by [facility] [address] [place] [address] , [address], [place] [address] Michael Rabago MD, Ball Points Inspector CLIA: [id number] Albumin/Creatinine Ratio, Urine 5 0-30 ug/mg Microalbumin, Urine, Random 0.7 Creatinine, Urine 140.2 P-Vitamin D 25-Hydroxy Reviewed date:05/13/2024 11:44:25 AM Interpretation: Normal Performing Lab: Notes/Report: Test performed by [facility] [address] [place] [address] [address], [place] [address] Michael Rabago MD, Ball Points Inspector CLIA: [id number] Vitamin D 25-Hydroxy 64.7 30.0-100.0 ng/mL Interpretation of Vitamin D 25 [place]: < 20 ng/mL - Deficiency 20 - 29 ng/mL - Insufficiency 30 - 100 ng/mL - Sufficiency > 100 ng/mL - Super-therapeutic- toxicity may occur above this level. Clinical correlation required. Estimated Average Glucose Reviewed date:05/13/2024 11:44:25 AM Interpretation: Normal Performing Lab: Notes/Report: Test performed by [facility] [address] [place] [address] [place] [address] Michael Rabago MD, Ball Points Inspector CLIA: [id number] Estimated Average Glucose (eAG) 120 Estimated Average Glucose (eAG) is calculated using the equation eAG = (28.7 x HbA1c) - 46.7 based on the guidelines established by the ADA. If the patient has certain diseases including kidney disease, sickle cell anemia, thalassemia, or is taking medications such as dapsone, erythropoietin, or iron, eAG should not be evaluated. Glucose (In-House) Reviewed date:11/16/2023 01:40:43 PM Interpretation:131 Performing Lab: Notes/Report: 131 blood glucose 131 74 - 106 mg/dL Glycohemoglobin A1c (in hous e) Reviewed date:11/16/2023 01:40:43 PM Interpretation:5.5, normal Performing Lab: Notes/Report: 5.5, normal glycohemoglobin 5.5% 5 - 6.5 % P-Vitamin D 25-Hydroxy Reviewed date:11/16/2023 01:40:43 PM Interpretation:Normal Performing Lab: Notes/Report: Test performed by [facility] [address] [place] [address] [address], [place] [address] Michael Rabago MD, Ball Points Inspector CLIA: [id number] Vitamin D 25-Hydroxy 74.0 30.0-100.0 ng/mL Interpretation of Vitamin D 25 [place]: < 20 ng/mL - Deficiency 20 - 29 ng/mL - Insufficiency 30 - 100 ng/mL - Sufficiency > 100 ng/mL - Super-therapeutic- toxicity may occur above this level. Clinical correlation required. Mammogram Reviewed date:11/18/2023 02:05:48 PM Interpretation:Negative, annual f/u Performing Lab: Notes/Report: Negative, annual f/u result Negative, annual f/u Medications Medication SIG (Take, Route, Frequency, Duration) Notes Start Date End Date Status Metoprolol Succinate ER 50 MG TAKE 1 TABLET ONCE DAILY; Duration: 90 days Active Irbesartan-hydroCHLOROthiaz terese 300-12.5 MG TAKE 1 TABLET ONCE DAILY; Duration: 90 days Active Vitamin D (Ergocalciferol) 57793 UNIT 1 capsule Orally Once Weekly; Duration: 90 days Active Simvastatin 40 MG TAKE 1 TABLET ONCE D AILY INTHE EVENING AT BEDTIME; Duration: 90 days Active Omeprazole 40 MG 1 capsule 1/2 to 1 h our before morning meal Orally Once a day Active Ziprasidone HCl 20 MG TAKE 1 CAPSULE ONC E DAILY WITH FOOD; Duration: 90 days Active Immunizations Vaccine Route Administration Date Status Comme nts COVID 19 Moderna Unknown 02/19/2020 Administered COVID 19 Moderna Unknown 03/19/2020 Administered COVID 19 Moderna Unknown 12/30/2020 Administered Fluzone High Dose (65yr and older) IM Intramuscular 12/29/2021 Administered Fluzone High Dose (65yr and older) IM Intramuscular 11/14/2023 Administered Prevnar (PCV20) IM Intramuscular 04/06/2022 Administered Shingrix Unknown 03/04/2021 Administered Shingrix Unknown 06/09/2021 Administered Tetanus Tdap-Adacel (over 7yrs) IM Intramuscular 07/27/2007 Administered Problems Problem Type SNOMED Code ICD Code Onset Dates Problem Status W/U Status Risk Notes Problem Vitamin D deficiency (33665725) Vitamin D deficiency (E55.9) Active confirmed Problem Mixed anxiety and depressive disorder (241497795) Depression with anxiety (F41.8) Active confirmed Problem Impaired fasting glucose (502297528) Impaired fasting glucose (R73.01) Active confirmed Problem Sialoadenitis (56974894) Parotiditis (K11.20) Active confirmed Problem Adjustment disorder with mixed anxiety and depressed mood (194990395) Adjustment disorder with mixed anxiety and depressed mood (F43.23) Active confirmed Problem Gastroesophageal reflux disease (858767121) Gastroesophageal reflux disease, esophagitis presence not specified (K21.9) Active confirmed Problem Hyperlipidaemia (19316343) Hyperlipidemia, unspecified hyperlipidemia type (E78.5) Active confirmed Problem Esophageal spasm (85004133) Esophageal spasm (K22.4) Active confirmed Problem Essential hypertension (70520007) Essential hypertension, hypertension with unspecified goal (I10) Active confirmed Problem Seasonal allergic rhinitis (545985508) Seasonal allergic rhinitis, unspecified allergic rhinitis trigger (J30.2) Active confirmed Problem Laryngopharyngeal reflux (938071254) LPRD (laryngopharyngeal reflux disease) (K21.9) Active confirmed Vital Signs Heart Rate 80 /min 06/22/2024 Blood pressure diastolic 80 mm Hg 06/22/2024 Height 62.50 in 06/22/2024 Blood pressure systolic 120 mm Hg 06/22/2024 Weight 185 lbs 06/22/2024 BMI 33.29 kg/m2 06/22/2024 Encounters Encounter Location Date Provider Diagnosis [facility] [address] [facility] [address] [place], [place] [phone] 11/14/2023 Zachary Alcova Essential hypertensi on, hypertension with unspecified goal I10 ; Hyperlipidemia, unspecified hyperlipidemia type E78.5 ; Gastroesophageal reflux disease, esophagitis presence not specified K21.9 ; Impaired fasting glucose R73.01 ; Vitamin D deficiency E55.9 ; Depression with anxiety F41.8 and Encounter for immunization Z23 [facility] [address] [facility] [address] [place], [place] [phone] 05/11/2024 Zachary Alcova Essential hypertensi on, hypertension with unspecified goal I10 ; Hyperlipidemia, unspecified hyperlipidemia type E78.5 ; LPRD (laryngopharyngeal reflux disease) K21.9 ; Impaired fasting glucose R73.01 and Vitamin D deficiency E55.9 [facility] [address] [facility] [address] [place], [place] [phone] 05/21/2024 Liza Dumont Sinusitis, acute J01 .90 [facility] [address] [facility] [address] [place], [place] [phone] 06/22/2024 Zachary Alcova Iliotibial band synd teofilo of left side M76.32 [facility] [address] [facility] [address] [place], [place] [phone] 05/13/2024 Zachary Luevano [facility] [address] [place], [place] [id number] 05/16/2024 Zachary Luevano [facility] [address] [place], [place] [phone] 06/07/2024 Esteban Gregg Smith Sinusitis, acute J01 .90 ; Hyperlipidemia, unspecified hyperlipidemia type E78.5 ; Essential hypertension, hypertension with unspecified goal I10 and LPRD (laryngopharyngeal reflux disease) K21.9 Assessments Encounter Date Diagnosis (ICD Code) Assessment Notes Treatment Notes Treatment Clinical Notes Section Notes 11/14/2023 Hyperlipidemia, unspecified hyperlipidemia type (ICD-10 - E78.5) 11/14/2023 Essential hypertension, hypertension with unspecified goal (ICD-10 - I10) 05/21/2024 Sinusitis, acute (ICD-10 - J01.90) fluids, rest, supportive measures for fever/symptom relief 06/07/2024 Sinusitis, acute (ICD-10 - J01.90) 05/11/2024 Hyperlipidemia, unspecified hyperlipidemia type (ICD-10 - E78.5) 05/11/2024 Essential hypertension, hypertension with unspecified goal (ICD-10 - I10) 06/22/2024 Iliotibial band syndrome of left side (ICD-10 - M76.32) Home exercise program provided to patient 05/11/2024 LPRD (laryngopharyngeal reflux disease) (ICD-10 - K21.9) 06/07/2024 Hyperlipidemia, unspecified hyperlipidemia type (ICD-10 - E78.5) 11/14/2023 Gastroesophageal reflux disease, esophagitis presence not specified (ICD-10 - K21.9) 06/07/2024 Essential hypertension, hypertension with unspecified goal (ICD-10 - I10) 11/14/2023 Impaired fasting glucose (ICD-10 - R73.01) 05/11/2024 Impaired fasting glucose (ICD-10 - R73.01) 11/14/2023 Vitamin D deficiency (ICD-10 - E55.9) 06/07/2024 LPRD (laryngopharyngeal reflux disease) (ICD-10 - K21.9) 05/11/2024 Vitamin D deficiency (ICD-10 - E55.9) 11/14/2023 Depression with anxiety (ICD-10 - F41.8) 11/14/2023 Encounter for immunization (ICD-10 - Z23) Plan Of Treatment Next Appt Details Provider Name:Zachary Salcedo Cassie ry, 11/12/2024 09:30:00 AM, [address], [address], [place], [place], [id number], Insurance Providers Payer Name Payer Address Payer Phone Subscriber Number Group Number Insured Name Patient Relationship to Insured Coverage Start Date Coverage End Date MEDICARE PART B [address] [address] [place] [id number] ROSITA CHAVEZ Self - patient is the insured [employer] [address] [place] [address] [id number] ROSITA CHAVEZ Self - patient is the insured Medications Administered Medication Instructions Date of Administration Dosage Notes Dexamethasone 12/17/2015 1 mL Dexamethasone 04/13/2016 1 mL Dexamethasone 09/21/2016 1 mL Dexamethasone 09/23/2016 1 mL Dexamethasone 01/31/2019 1 mL Medical (General) History Medical History History ICD Code Hypertension Hyperlipidemia Esophageal Reflux Esophageal Spasms Diverticulosis Ulcers 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 Webster Colon Polyps Impaired Fasting Glucose Asthma Allergic Rhinitis Surgical History Surgery Date(Month/Year) Tubal Ligation 1994 Appendectomy 1975 EGD 2011 Cholecystectomy 12/13/2011 Colonoscopy - 1 Polyp 07/2017 Trigger Thumb Steriod Injection 08/2017 Trigger Thumb Release 01/24/2018 Hospitalization History Reason Date(Month/Year) Chest Pains,Esophagal Spasms- [facility] 2013
--- NOTE | 2024-09-12 08:30 | US_ITS ---
PROCEDURE: US TRANSVAGINAL CLINICAL INDICATION: PostMenopausal Bleeding COMPARISON: No exams were available for comparison FINDINGS: Transvaginal sonographic images of the pelvis were obtained. UTERUS: 5.4 cm x 3.6 cmx 2.8 cm anteverted with a combined endometrial thickness of 4.1mm. There is a fluid-filled area within the fundus of the uterus but the anterior and posterior endometrium is extremely thin. There is a small anterior fibroid there 0.7 cm x 0.5 cm x 0.41 cm There appear to be nabothian cysts in the cervix. LEFT OVARY: 4ieh8zjj5.7cm with a volume of 0.3ml. RIGHT OVARY: Not visualized Left ovary is seen and appears atrophic.. Doppler flow to left ovary is seen. There is no fluid in the cul-de-sac. IMPRESSION: 1. Anteverted uterus small in size and normal in shape. The endometrium is thin. 2. Within the endometrium there is a fluid-filled area near the fundus. Possible blood but no evidence of polyps or thickening of the endometrium. 3. The left ovary is seen and appears normal. The right ovary is not visualized. 4. No fluid in the cul-de-sac. Dictated by: Keaton Webster MD 09/12/2024 15:02 Keaton Webster MD in OV 09/12/2024 15:02
== END 2024-09-12 23:59 | disposition home or self-care (01) ==
LOC: RAD 08:25
PROVIDERS: PCP Family Medicine; Visit Provider Nurse Practitioner Obstetrics & Gynecology
DX: R93.89 Abnormal findings on diagnostic imaging of other specified body structures (principal); N95.0 Postmenopausal bleeding
CPT/HCPCS: 76830

== ENCOUNTER 2024-11-29 14:37 | Outpatient (CLI) | payer MEDICARE, OTHER, SELFPAY ==
--- OUTSIDE RECORDS SUMMARY | 2024-05-21 06:30 | XMS_ITS ---
Author Organization [facility] Address [address] [place] [id number] Care Team Providers Care Petroleum Supply Specialist Name Role Phone Esteban Smith Primary Care Provider [phone] Zachary Luevano Unavailable [phone] Liza Dumont Unavailable [phone] Allergies Allergen (clinical drug ingredient) Drug/Non Drug [...] 10 day(s) 05/21/2024 Active Vitamin D (Ergocalciferol) 56574 UNIT 1 capsule Orally Once Weekly Active Voquezna 10 MG 1 tablet Orally Once a day; Duration: 30 day(s) 05/11/2024 Active Vital Signs Weight 184.2 lbs 05/21/2024 Blood pressure systolic 124 mm Hg 05/22/19 25 Blood pressure diastolic 76 mm Hg 025 Heart Rate 57 /min 05/21/2024 Height 62.50 in 05/21/2024 BMI 33.15 kg/m2 05/21/2024 Encounters Encounter Location Date Provider Diagnosis [facility] [address] [place] [address] 36 [facility] [address] [place], [place] [phone] 05/21/2024 Liza Dumont Sinusitis, acute J01.90 Assessments [...] Up: prn, Reason: Provider Name:Zachary Matthews ry, 05/13/2025 09:15:00 AM, [address] [facility] 36 [facility], [address], [place], [place], [id number], Progress Notes * KATHYROSITA ADOB:[birth year] (69 yo F)Acc No.[id number]:05/21/2024 Progress Notes Patient: ROSITA MONSON Provider: ROSALINO Stone :1955 A ge:69 Y S ex:Female Date:05/21/2024 Address:[address] [place] [phone] Pcp:Esteban Smith Subjective: * Chief Complaints: * [...] in03/2024. * ROS: D ERMATOLOGY: no R tai. n o H phyllis. G ASTROENTEROLOGY: no N ausea. n o V omiting. U ROLOGY: no D ifficulty urinating. n o B lood in urine. 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 * Surgical History: T ubal Ligation 1993, Appendectomy 1974, EGD 2011, Cholecystectomy 12/13/2011, Colonoscopy - 1 Polyp 07/2017, Trigger Thumb Steriod Injection 08/2017, Trigger Thumb Release 01/24/2018. * Hospitalization/Major Diagno stic Procedure: C hest Pains,Esophagal Spasms- [facility] 04/11/2013. * Family History: F ather: [...] * Medications: T aking Vitamin D (Ergocalciferol) 31965 UNIT Capsule 1 capsule Orally Once Weekly [...] * Images: Billing Information: * Visit Code: 99759 Office Visit, Est Pt., Level 3. * Procedure Codes: G2211 Complex e/m visit add on. 3074F SYST BP LT 130 MM HG. 3078F DIAST BP < 80 MM HG. * Electronic signature of Jackie Dumont APRN on 11/29/2024 at 02:46 PM EDT Sign off status: Pending * Provider: ROSALINO Stone Date: 0 05/21/2024 Generated for Eliezer martin/Val/Katitting on: 1 02:46 PM EDT History and Physical Notes * HPI [...]
--- OUTSIDE RECORDS SUMMARY | 2024-06-22 07:45 | XMS_ITS ---
Author Organization [facility] Address [address] [place] [id number] Care Team Providers Care Criminology Teacher Name Role Phone Esteban Smith Primary Care Provider [phone] BuffaloZachary roland Unavailable [phone] Allergies Allergen (clinical drug ingredient) Drug/Non Drug Allergy documented on EMR Reaction Allergy Type Onset Date Status Oxytetracycline HCl Unknown Drug Allergy Active Adhesive Unknown Allergy Active codeine Codeine Unknown Drug Allergy Active REASON FOR VISIT pain in left leg Medications Medication SIG (Take, Route, Frequency, Duration) Notes Start Date End Date Status Irbesartan-hydroCHLOROthiaz terese 300-12.5 MG TAKE 1 TABLET ONCE DAILY; Duration: 90 days Active Ziprasidone HCl 20 MG TAKE 1 CAPSULE ONC E DAILY WITH FOOD; Duration: 90 days Active Metoprolol Succinate ER 50 MG TAKE 1 TABLET ONCE DAILY; Duration: 90 days Active Vitamin D (Ergocalciferol) 54436 UNIT 1 capsule Orally Once Weekly; Duration: 90 days Active Simvastatin 40 MG TAKE 1 TABLET ONCE D AILY INTHE EVENING AT BEDTIME; Duration: 90 days Active Omeprazole 40 MG 1 capsule 1/2 to 1 h our before morning meal Orally Once a day Active Vital Signs Weight 185 lbs 06/22/2024 Blood pressure systolic 120 mm Hg 06/23/19 25 Blood pressure diastolic 80 mm Hg 025 Heart Rate 80 /min 06/22/2024 Height 62.50 in 06/22/2024 BMI 33.29 kg/m2 06/22/2024 Encounters Encounter Location Date Provider Diagnosis [facility] [address] [place] [id number] 06/22/2024 Zachary Luevano Iliotibial band syndrome of left side M76.32 Assessments Encounter Date Diagnosis (ICD Code) Assessment Notes Treatment Notes Treatment Clinical Notes Section Notes 06/22/2024 Iliotibial band syndrome of left side (ICD-10 - M76.32) Home exercise program provided to patient Plan Of Treatment Treatment Notes Assessment Notes Iliotibial band syndrome of left side Ho me exercise program provided to patient Next Appt Details Follow Up: via phone to repo rt progress, Reason: Provider Name:Zacharytasia Matthews ry, 05/13/2025 09:15:00 AM, [address], [address], [place], [place], [phone], Progress Notes * ROSITA CHAVEZ ADOB:[birth year] (69 yo F)Acc No.[id number]:06/22/2024 Progress Notes Patient: ROSITA MONSON Provider: Carlota Luevano M.D. :1955 A ge:69 Y S ex:Female Date:06/22/2024 Address:[address] [place] [phone] Pcp:Esteban Smith Subjective: * Chief Complaints: * 1 . Pain in left leg. * HPI: L e69 year old female presents with c/o Leg pain P t complains of pain below her lt knee for about a month. Pt states she did have a bruise where the pain is but that has gone away. Pt states she only has pain when she is kneeling down. Pt denies injury and swelling. * ROS: D ERMATOLOGY: no R tai. n o H phyllis. G ASTROENTEROLOGY: no N ausea. n o V omiting. U ROLOGY: no D ifficulty urinating. n o B lood in urine. 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 * Surgical History: T ubal Ligation 1993, Appendectomy 1974, EGD 2011, Cholecystectomy 12/13/2011, Colonoscopy - 1 Polyp 07/2017, Trigger Thumb Steriod Injection 08/2017, Trigger Thumb Release 01/24/2018. * Hospitalization/Major Diagno stic Procedure: C hest Pains,Esophagal Spasms- [facility] 04/11/2013. * Family History: F ather: alive [...] ouside US: no. * Medications: T aking Omeprazole 40 MG Capsule Delayed Release 1 capsule 1/2 to 1 hour before morning meal Orally Once a day , Taking Vitamin D (Ergocalciferol) 33781 UNIT Capsule 1 capsule Orally Once Weekly [...] 1 CAPSULE ONCE DAILY WITH FOOD , Discontinued Voquezna 10 MG Tablet 1 tablet Orally Once a day , Discontinued Cefuroxime Axetil 500 MG Tablet 1 tablet Orally every 12 hrs , Discontinued Medrol 4 MG Tablet Therapy Pack as directed orally daily , Medication List reviewed and reconciled with the patient * Allergies: C odeine, Oxytetracycline HCl, Adhesive. Objective: * Vitals: W t: 185, Temp: 98.1, BP: 120/80, HR: 80, Nurse: serena, Ht: 62.50, BMI:33.29. * Examination: G eneral Examination: General Appearance: N AD. E xtremities: t enderness along the left IT band and near the fibular head. Assessment: * Assessment: 1. I liotibial band syndrome of left side - M76.32 (Primary) Plan: * Treatment: * Procedure Codes: G 2211 Complex e/m visit add on, 3074F SYST BP LT 130 MM HG, 3079F DIAST BP 80-89 MM HG * Follow Up: v ia phone to report progress * Images: Billing Information: * Visit Code: 19386 Office Visit, Est Pt., Level 3. * Procedure Codes: G2211 Complex e/m visit add on. 3074F SYST BP LT 130 MM HG. 3079F DIAST BP 80-89 MM HG. * Electronic signature of Melisa Luevano MD on 11/29/2024 at 02:47 PM EDT Sign off status: Pending * Provider: Carlota Luevano M.D. Date: 0 06/22/2024 Generated for Eliezer martin/Val/Katitting on: 1 02:47 PM EDT History and Physical Notes * HPI (History of Present Illness) Category Sub-Category Detail Notes Category Not es Leg Leg pain Pt complains of pain below her lt knee for about a month. Pt states she did have a bruise where the pain is but that has gone away. Pt states she only has pain when she is kneeling down. Pt denies injury and swelling Examination Category Sub-Category Detail Notes Category Not es General Examination Extremities: tenderness a long the left IT band and near the fibular head General Appearance: NAD
--- OUTSIDE RECORDS SUMMARY | 2024-11-12 05:30 | XMS_ITS ---
Author Organization [facility] Address [address] [place] [phone] Care Team Providers Care Adult Care Manager Name Role Phone Esteban Smith Primary Care Provider Zachary Luevano Unavailable [phone] Allergies Allergen (clinical drug ingredient) Drug/Non Drug Allergy documented on EMR Reaction Allergy Type Onset Date Status Oxytetracycline HCl Unknown Drug Allergy Active Adhesive Unknown Allergy Active codeine Codeine Unknown Drug Allergy Active REASON FOR VISIT 6 months Medications Medication SIG (Take, Route, Frequency, Duration) Notes Start Date End Date Status Vitamin D (Ergocalciferol) 63495 UNIT 1 capsule Orally Once Weekly; Duration: 90 days Active Ziprasidone HCl 20 MG TAKE 1 CAPSULE ONC E DAILY WITH FOOD; Duration: 90 days Active Irbesartan-hydroCHLOROthiaz terese 300-12.5 MG TAKE 1 TABLET ONCE DAILY; Duration: 90 days Active Simvastatin 40 MG TAKE 1 TABLET ONCE D AILY INTHE EVENING AT BEDTIME; Duration: 90 days Active Omeprazole 40 MG 1 capsule 1/2 to 1 h our before morning meal Orally Once a day; Duration: 90 days Active Metoprolol Succinate ER 50 MG TAKE 1 TABLET ONCE DAILY; Duration: 90 days Active Immunizations Vaccine Route Administration Date Status Comme nts Fluzone High Dose (65yr and older) IM Intramuscular 11/12/2024 Administered Vital Signs Weight 182.8 lbs 11/12/2024 Blood pressure systolic 124 mm Hg 11/13/19 25 Blood pressure diastolic 78 mm Hg 025 Heart Rate 56 /min 11/12/2024 Height 62.50 in 11/12/2024 BMI 32.9 kg/m2 11/12/2024 Encounters Encounter Location Date Provider Diagnosis [facility] [address] [place] [id number] 11/12/2024 Zachary Luevano Essential hypertensi on, hypertension with unspecified goal I10 ; Hyperlipidemia, unspecified hyperlipidemia type E78.5 ; Gastroesophageal reflux disease, esophagitis presence not specified K21.9 ; Impaired fasting glucose R73.01 ; Vitamin D deficiency E55.9 ; Breast cancer screening by mammogram Z12.31 and Encounter for immunization Z23 Assessments Encounter Date Diagnosis (ICD Code) Assessment Notes Treatment Notes Treatment Clinical Notes Section Notes 11/12/2024 Essential hypertension, hypertension with unspecified goal (ICD-10 - I10) 11/12/2024 Hyperlipidemia, unspecified hyperlipidemia type (ICD-10 - E78.5) 11/12/2024 Gastroesophageal reflux disease, esophagitis presence not specified (ICD-10 - K21.9) 11/12/2024 Impaired fasting glucose (ICD-10 - R73.01) 11/12/2024 Vitamin D deficiency (ICD-10 - E55.9) 11/12/2024 Breast cancer screening by mammogram (ICD-10 - Z12.31) 11/12/2024 Encounter for immunization (ICD-10 - Z23) Plan Of Treatment Medication Medication Name Sig Start Date Stop Date Notes Vitamin D (Ergocalciferol) 47714 UNIT 1 capsule Orally Once Weekly; Duration: 90 days Ziprasidone HCl 20 MG TAKE 1 CAPSULE ONC E DAILY WITH FOOD; Duration: 90 days Irbesartan-hydroCHLOROthiazi de 300-12.5 MG TAKE 1 TABLET ONCE DAILY; Duration: 90 days Simvastatin 40 MG TAKE 1 TABLET ONCE D AILY INTHE EVENING AT BEDTIME; Duration: 90 days Omeprazole 40 MG 1 capsule 1/2 to 1 h our before morning meal Orally Once a day; Duration: 90 days Metoprolol Succinate ER 50 MG TAKE 1 TAB LET ONCE DAILY; Duration: 90 days Pending Test Test Name Order Date Mammogram 11/12/2024 Next Appt Details Follow Up: 6 Months, Reason: Provider Name:Zachary patino, 05/13/2025 09:15:00 AM, [address], [address], [place], [phone], Progress Notes * ROSITA CHAVEZOB:[birth year] (69 yo F)Acc No.[id number]:11/12/2024 Progress Notes Patient: ROSITA MONSON Provider: Carlota Luevano M.D. :1955 A ge:69 Y S ex:Female Date:11/12/2024 Address:[address] [place] [address] [phone] Pcp:Esteban Smith Subjective: * Chief Complaints: * 1 . 6 months. * HPI: C ardiology: 69 year old female presents with c/o Blood Pressure Elevated?Pt here for 6 month checkup on hypertension. Pt states she is doing well and does not have any concerns at this time. c/o Hyperlipidemia P t is fasting today. * Medical History: H ypertension, Hyperlipidemia, Esophageal Reflux, Esophageal Spasms, Diverticulosis, Ulcers, [employer] - Dr. Webster, Colon Polyps, Impaired Fasting Glucose, Asthma, Allergic Rhinitis. * Surgical History: T ubal Ligation 1993, Appendectomy 1974, EGD 2011, Cholecystectomy 12/13/2011, Colonoscopy - 1 Polyp 07/2017, Trigger Thumb Steriod Injection 08/2017, Trigger Thumb Release 01/24/2018. * Hospitalization/Major Diagno stic Procedure: C hest Pains,Esophagal Spasms- [facility] 04/11/2013. * Family History: F ather: alive 83 yrs, CHF, COPD, diabetes, hyperlipidemia. M other: 75 yrs, cancer. P aternal Grand Father: . P aternal Grand Mother: . M aternal Grand Father: . M aternal Grand Mother: . 3 brother(s) , 1 sister(s) . 1 son(s) , 1 daughter(s) . . * Social History: C URRENT TOBACCO USE: No . C affeine: yes, frequency:daily. Exercise: yes. Home [...] meal Orally Once a day , Taking Simvastatin 40 MG Tablet TAKE 1 TABLET ONCE DAILY INTHE EVENING AT BEDTIME , Taking Metoprolol Succinate ER 50 MG Tablet Extended Release 24 Hour TAKE 1 TABLET ONCE DAILY , Taking Irbesartan-hydroCHLOROthiazide 300-12.5 MG Tablet TAKE 1 TABLET ONCE DAILY , Taking Ziprasidone HCl 20 MG Capsule TAKE 1 CAPSULE ONCE DAILY WITH FOOD , Taking Vitamin D (Ergocalciferol) 02393 UNIT Capsule 1 capsule Orally Once Weekly , Medication List reviewed and reconciled with the patient * Allergies: C odeine, Oxytetracycline HCl, Adhesive. Objective: * Vitals: W t: 182.8, Temp: 97.8, BP: 124/78, HR: 56, Nurse: RAFFY, Ht: 62.50, BMI:32.9. * Examination: C ardiology: General Appearance: p [...] V itamin D deficiency - E55.9 6 .?Breast cancer screening by mammogram - Z12.31 7 . E ncounter for immunization - Z23 Plan: * Treatment: 2. H yperlipidemia, unspecified hyperlipidemia type Refill Simvastatin Tablet, 40 MG, TAKE 1 TABLET ONCE DAILY INTHE EVENING AT BEDTIME, 90 days, 90, Refills 1. 3. G astroesophageal reflux disease, esophagitis presence not specified Refill Omeprazole Capsule Delayed Release, 40 MG, 1 capsule 1/2 to 1 hour before morning meal, Orally, Once a day, 90 days, 90, Refills 1. 4. V itamin D deficiency Refill Vitamin D (Ergocalciferol) Capsule, 01562 UNIT, 1 capsule, Orally, Once Weekly, 90 days, 13, Refills 1. 5. B reast cancer screening by mammogram I maging: Mammogram 6.?Others? Refill Ziprasidone HCl Capsule, 20 MG, TAKE 1 CAPSULE ONCE DAILY WITH FOOD, 90 days, 90, Refills 1. ? * Immunizations: Fluzone High Dose (65yr and older) : 0.5 mL (Route: Intramuscular) given by Sandy Gibbons on Right Deltoid (Encounter for immunization) * Procedure Codes: G 2211 Complex e/m visit add on, 1036F TOBACCO NON-USER, G8950 PREHTN/HTN BP DOC INDCD F/U DOC, G8752 MOST RECENT SYSTOLIC BP < 140MM HG, G8754 MOST RECENT DIASTOLIC BP < 90MM HG, 3074F SYST BP LT 130 MM HG, 3078F DIAST BP < 80 MM HG, 3017F COLORECTAL CA SCREEN DOC REV, G9899 Scrn maryuri perf rslts doc, G8399 PT W/DXA DOCUMENT OR ORDER * Preventive Medicine: Screening / Special Tests: M ammogram 1 , negative, recommended today.?Colonoscopy , diverticulosis, repeat 5 years. B one mineral Density , normal, recommended. * Follow Up: 6 Months * Images: Billing Information: * Visit Code: 47888 Office Visit, Est Pt., Level 4. * Procedure Codes: G2211 Complex e/m visit add on. 1036F TOBACCO NON-USER. G8950 PREHTN/HTN BP DOC INDCD F/U DOC. G8752 MOST RECENT SYSTOLIC BP < 140MM HG. G8754 MOST RECENT DIASTOLIC BP < 90MM HG. 3074F SYST BP LT 130 MM HG. 3078F DIAST BP < 80 MM HG. 3017F COLORECTAL CA SCREEN DOC REV. G9899 Scrn maryuri perf rslts doc. G8399 PT W/DXA DOCUMENT OR ORDER. * Electronic signature of Melisa Luevano MD on 11/29/2024 at 02:47 PM EDT Sign off status: Pending * Provider: Carlota Luevano M.D. Date: 0 11/12/2024 Generated for Eliezer perdomoVal/Estefaníasmitting on: 1 02:47 PM EDT History and Physical Notes * HPI (History of Present Illness) Category Sub-Category Detail Notes Category Not es Cardiology Blood Pressure Elevated Pt here for 6 month checkup on hypertension. Pt states she is doing well and does not have any concerns at this time Hyperlipidemia Pt is fasting today Examination Category Sub-Category Detail Notes Category Not es Cardiology Lungs: clear, no rales or wheezes HEENT: unremarkable Heart sounds: RRR, normal S1, S2 Extremities: no leg edema Murmur, click , gallop: none Peripheral pulses: 2 plus bilateral General Appearance: pleasant, NAD
--- OUTSIDE RECORDS SUMMARY | 2024-11-22 09:06 | XMS_ITS ---
[facility] Address [address] [facility] [address] [facility] [address] [place] [id number] Care Team Providers Care Lead Teller Name Role Phone Esteban Smith Primary Care Provider [phone] Zachary Luevano [phone] REASON FOR VISIT Bone Density Encounters Encounter Location Date [facility] [address] [facility] [address] [place] [id number] 11/22/2024 Esteban Smith Menopause Z78.0 and Encounter for screening for osteoporosis Z13.820 Assessments Encounter Date Diagnosis (ICD Code) Assessment Notes Treatment Notes Treatment Clinical Notes Section Notes 11/22/2024 Menopause (ICD-10 - Z78.0) 11/22/2024 Encounter for screening for osteoporosis (ICD-10 - Z13.820) Plan Of Treatment Pending Test Test Name Order Date Bone density 11/22/2024 Next Appt Details Provider Name:Zachary Matthews ry, 05/13/2025 09:15:00 AM, [address] [facility], [address], [place], [id number], Progress Notes * ROSITA CHAVEZ ADOB:[birth year] (69 yo F)Acc No.[id number]:11/22/2024 Patient: Morris ELYSSAROSITA :1955 A ge:69 Y S ex:Female Address:[address] [place] [address] [place] [id number] Subjective: * Chief Complaints: * B one Density * Medical History: * Surgical History: * Hospitalization/Major Diagno stic Procedure: * Medications: Objective: * Vitals: * Physical Examination: Assessment: * Assessment: 1. M enopause - Z78.0 (Primary) 2 . E ncounter for screening for osteoporosis - Z13.820 Plan: * Treatment: 2.?Encounter for screening for osteoporosis?Imaging: Bone density* Jayne Sotomayor 11/22/2024 01:1 2:57 PM EDT > sent to [facility] for referral to [facility] has an open referral for a mammogram that has been faxed but not scheduled yet. Can we see if these can be scheduled together? * Procedure Codes: * true * Date: Generated for Eliezer martin/Val/eTransmitting on: 1 02:47 PM EDT
--- OUTSIDE RECORDS SUMMARY | 2024-11-22 09:18 | XMS_ITS ---
Author Organization [facility] Address [address] [facility] [address] [place] [id number] Care Team Providers Care Senior Management Consultant Name Role Phone Esteban Smith Primary Care Provider Zachary Luevano [phone] Encounters Encounter Location Date Provider Diagnosis [facility] [address] [place] [id number] 11/22/2024 Esteban Smith Encounter for screening for [address], [place], [id number], Progress Notes * ROSITA CHAVEZ ADOB:[birth year] (69 yo F)Acc No.[id number]:11/22/2024 Patient: Morris ELYSSASMOOTHROSITA A :1955 A ge:69 Y S ex:Female Address:[address], [place] [address] Subjective: * Chief Complaints: * * Medical [...] Date: Generated for Eliezer martin/Val/Silvia on: 1 02:46 PM EDT
--- NOTE | 2024-11-29 14:39 | MM_ITS ---
PROCEDURE INFORMATION: Exam: MG Bilateral Screening 3D Mammography Exam date and time: 11/29/2024 2:45 PM Age: 69 years old Clinical indication: Screening examination TECHNIQUE: Imaging protocol: Bilateral Screening tomosynthesis and 2D mammography including computer-aided detection (CAD) when performed. COMPARISON: 1. MG MM DIG SCREENING MAMM BI W/CAD 11/15/2023 7:54 AM 2. MG MM DIG SCREENING MAMM BI W/CAD 10/15/2022 12:53 PM FINDINGS: MAMMOGRAPHY: Breast composition: There are scattered areas of fibroglandular density. Mass: None. Architectural distortion: None. Calcifications: No suspicious calcifications. Asymmetric density: None. Skin thickening: None. Axillary adenopathy: None. IMPRESSION: No mammographic evidence of malignancy. Annual screening is recommended unless otherwise clinically indicated. ASSESSMENT: BI-RADS Category 1: Negative.
--- OUTSIDE RECORDS SUMMARY | 2024-11-29 14:47 | XMS_ITS | Patient Health Record ---
[facility] Address [address] [place] [id number] Care Team Providers Care Plastic Die Maker Apprentice Name Role Phone Esteban Smith Primary Care Provider [phone] Livier Luevanoian Unavailable [phone] Liza Dumont Unavailable [phone] Allergies Allergen (clinical drug ingredient) Drug/Non Drug [...] Normal Performing Lab: Notes/Report: Test performed by [facility] , [address], [place] [address] Michael Rabago MD, Assembler Product CLIA: [id number] Sodium 142 135-145 mmol/L Potassium 4.3 3.5-5.3 [...] 0.6 <0.2-1.2 mg/dL A/G Ratio 1.5 1.1-2.5 P-Lipid Panel Reviewed date:05/13/2024 11:44:25 AM Interpretation:chol 207, non-hdl 148 Performing Lab: Notes/Report: Test performed by [facility] [address] , [address], [place] [address] Michael Rabago MD, Assembler Product CLIA: [id number] Cholesterol 207 <200 mg/dL Triglycerides 106 <150 [...] Normal Performing Lab: Notes/Report: Test performed by [facility] [address] [place] [address] , [facility] [address], [place] [address] Michael Rabago MD, Assembler Product CLIA: [id number] TSH reflex to FT4 3.36 0.43-5.25 mU/L P-Microalbumin/Creatinine, R andom Urine Sample Reviewed date:05/13/2024 11:44:25 AM Interpretation: Normal Performing Lab: Notes/Report: Test performed by [facility] [address] [place] [address] , [address], [place] [address] Michael Rabago MD, Assembler Product CLIA: [id number] Albumin/Creatinine Ratio, Urine 5 0-30 ug/m g Microalbumin, Urine, Random 0.7 Creatinine, Urine 140.2 P-Vitamin D 25-Hydroxy Reviewed date:05/13/2024 11:44:25 AM Interpretation: Normal Performing Lab: Notes/Report: Test performed by [facility] [address] [place] [address] , [address] , [place] [address] Michael Rabago MD, Assembler Product CLIA: [id number] Vitamin D 25-Hydroxy 64.7 30.0-100.0 ng/mL Interpretation of Vitamin D 25 OH: < 20 ng/mL - Deficiency 20 - 29 ng/mL - Insufficiency 30 - 100 ng/mL - Sufficiency > 100 ng/mL - Super-therapeutic- toxicity may occur above this level. Clinical correlation required. Estimated Average Glucose Reviewed date:05/13/2024 11:44:25 AM Interpretation: Normal Performing Lab: Notes/Report: Test performed by [facility] [address] [place] [address] [address], [place] [address] Michael Rabago MD, Assembler Product CLIA: [id number] Estimated Average Glucose (eAG) 120 Estimated Average Glucose (eAG) is calculated using the equation eAG = (28.7 x HbA1c) - 46.7 based on the guidelines established by the ADA. If the patient has certain diseases including kidney disease, sickle cell anemia, thalassemia, or is taking medications such as dapsone, erythropoietin, or iron, eAG should not be evaluated. P-Hemoglobin A1C Reviewed date:05/13/2024 11:44:25 AM Interpretation:5.8 Performing Lab: Notes/Report: Test performed by [facility] [address] [place] [address] [address] , [place] [address] Michael Rabago MD, Assembler Product CLIA: [id number] Hemoglobin A1C 5.8 <5.7 % The following HbA1c ranges recommended by the [place] [employer] (ADA) may be used as an aid in the diagnosis of diabetes mellitus. HbA1c Suggested Diagnosis >=6.5% Diabetic 5.7% - 6.4% Pre-Diabetic <5.7% Non-Diabetic Medications Medication SIG (Take, Route, Frequency, Duration) Notes Start Date End Date Status Vitamin D (Ergocalciferol) 01590 UNIT 1 capsule Orally Once Weekly; Duration: [...] TABLET ONCE DAILY; Duration: 90 days Active Omeprazole 40 MG 1 capsule 1/2 to 1 h our before morning meal Orally Once a day; Duration: 90 days Active Immunizations Vaccine Route Administration Date Status Comme nts COVID 19 Moderna Unknown 02/19/2020 Administered COVID 19 Moderna Unknown 03/19/2020 Administered COVID 19 Moderna Unknown 12/30/2020 Administered Fluzone High Dose (65yr and older) IM Intramuscular 12/29/2021 Administered Fluzone High Dose (65yr and older) IM Intramuscular 11/14/2023 Administered Fluzone High Dose (65yr and older) IM Intramuscular 11/12/2024 Administered Prevnar (PCV20) IM Intramuscular 04/06/2022 Administered Shingrix Unknown 03/04/2021 Administered Shingrix Unknown 06/09/2021 Administered Tetanus Tdap-Adacel (over 7yrs) IM Intramuscular 07/27/2007 Administered Problems Problem Type SNOMED Code ICD Code Onset Dates Problem Status W/U Status Risk Notes Problem Vitamin D deficiency (57540572) Vitamin D deficiency (E55.9) Active confirmed Problem Mixed anxiety and depressive disorder (101868406) Depression with anxiety (F41.8) Active confirmed Problem Impaired fasting glucose (055961349) Impaired fasting glucose (R73.01) Active confirmed Problem Sialoadenitis (73610173) Parotiditis (K11.20) Active confirmed Problem Adjustment disorder with mixed anxiety and depressed mood (784931443) Adjustment disorder with mixed anxiety and depressed mood (F43.23) Active confirmed Problem Gastroesophageal reflux disease (264820983) Gastroesophageal reflux disease, esophagitis presence not specified (K21.9) Active confirmed Problem Hyperlipidaemia (20891877) Hyperlipidemia, unspecified hyperlipidemia type (E78.5) Active confirmed Problem Esophageal spasm (29119433) Esophageal spasm (K22.4) Active confirmed Problem Essential hypertension (71661301) Essential hypertension, hypertension with unspecified goal (I10) Active confirmed Problem Seasonal allergic rhinitis (263614177) Seasonal allergic rhinitis, unspecified allergic rhinitis trigger (J30.2) Active confirmed Problem Laryngopharyngeal reflux (391553137) LPRD (laryngopharyngeal reflux disease) (K21.9) Active confirmed Vital Signs Heart Rate 56 /min 11/12/2024 Blood pressure diastolic 78 mm Hg 11/12/2024 Height 62.50 in 11/12/2024 Blood pressure systolic 124 mm Hg 11/12/2024 Weight 182.8 lbs 11/12/2024 BMI 32.9 kg/m2 11/12/2024 Encounters Encounter Location Date Provider Diagnosis [facility] [address] [facility] [address] [place] [id number] 05/11/2024 Zachary Luevano Essential hypertensi on, hypertension with unspecified goal I10 ; Hyperlipidemia, unspecified hyperlipidemia type E78.5 ; LPRD (laryngopharyngeal reflux disease) K21.9 ; Impaired fasting glucose R73.01 and Vitamin D deficiency E55.9 [facility] [address] [place], [place] [id number] 05/21/2024 Liza Dumont Sinusitis, acute J01 .90 [facility] [address] [place], [place] [id number] 06/22/2024 Zachary Hubertus Iliotibial band synd teofilo of left side M76.32 [facility] [address] [place], [place] [id number] 11/12/2024 Zachary Hubertus Essential hypertensi on, hypertension with unspecified goal I10 ; Hyperlipidemia, unspecified hyperlipidemia type E78.5 ; Gastroesophageal reflux disease, esophagitis presence not specified K21.9 ; Impaired fasting glucose R73.01 ; Vitamin D deficiency E55.9 ; Breast cancer screening by mammogram Z12.31 and Encounter for immunization Z23 [facility] [address] [place], [place] [id number] 05/13/2024 Zachary Hubertus A[facility] [address] [place], [place] [id number] 05/16/2024 Zachary Hubertus [facility] [address] [place], [place] [id number] 06/07/2024 Esteban Smith Sinusitis, acute J01 .90 ; Hyperlipidemia, unspecified hyperlipidemia type E78.5 ; Essential hypertension, hypertension with unspecified goal I10 and LPRD (laryngopharyngeal reflux disease) K21.9 [facility] [address] [place], [place] [id number] 11/22/2024 Esteban Smith Menopause Z78.0 and Encounter for screening for osteoporosis Z13.820 [facility] [address] [place], [place] [id number] 11/22/2024 Esteban Smith Encounter for screen ing for malignant neoplasm of respiratory organs Z12.2 and History of nicotine dependence Z87.891 Assessments Encounter Date Diagnosis (ICD Code) Assessment Notes Treatment Notes Treatment Clinical Notes Section Notes 05/11/2024 Hyperlipidemia, unspecified hyperlipidemia type (ICD-10 - E78.5) 05/11/2024 Essential hypertension, hypertension with unspecified goal (ICD-10 - I10) 06/07/2024 Sinusitis, acute (ICD-10 - J01.90) 06/22/2024 Iliotibial band syndrome of left side (ICD-10 - M76.32) Home exercise program provided to patient 11/22/2024 Encounter for screening for osteoporosis (ICD-10 - Z13.820) 11/22/2024 Menopause (ICD-10 - Z78.0) 11/22/2024 Encounter for screening for malignant neoplasm of respiratory organs (ICD-10 - Z12.2) 11/22/2024 History of nicotine dependence (ICD-10 - Z87.891) 11/12/2024 Hyperlipidemia, unspecified hyperlipidemia type (ICD-10 - E78.5) 11/12/2024 Essential hypertension, hypertension with unspecified goal (ICD-10 - I10) 05/21/2024 Sinusitis, acute (ICD-10 - J01.90) fluids, rest, supportive measures for fever/symptom relief 11/12/2024 Gastroesophageal reflux disease, esophagitis presence not specified (ICD-10 - K21.9) 06/07/2024 Hyperlipidemia, unspecified hyperlipidemia type (ICD-10 - E78.5) 05/11/2024 LPRD (laryngopharyngeal reflux disease) (ICD-10 - K21.9) 05/11/2024 Impaired fasting glucose (ICD-10 - R73.01) 06/07/2024 Essential hypertension, hypertension with unspecified goal (ICD-10 - I10) 11/12/2024 Impaired fasting glucose (ICD-10 - R73.01) 11/12/2024 Vitamin D deficiency (ICD-10 - E55.9) 05/11/2024 Vitamin D deficiency (ICD-10 - E55.9) 06/07/2024 LPRD (laryngopharyngeal reflux disease) (ICD-10 - K21.9) 11/12/2024 Breast cancer screening by mammogram (ICD-10 - Z12.31) 11/12/2024 Encounter for immunization (ICD-10 - Z23) Plan Of Treatment Pending Test Test Name Order Date Bone density 11/22/2024 Mammogram 11/12/2024 CT Scan : Chest, low dose 11/22/2024 Next Appt Details Provider Name:Zachary Matthews ry, 05/13/2025 09:15:00 AM, [address], [address], [place], [id number], Insurance Providers Payer Name Payer Address Payer Phone Subscriber Number Group Number Insured Name Patient Relationship to Insured Coverage Start Date Coverage End Date MEDICARE PART B [address] [address] [place] [id number] ROSITA CHAVEZ Self - patient is the insured [employer] [address] [place] [address] [id number] ROSITA CHAVEZ Self - patient is the insured Medications Administered Medication Instructions Date of Administration Dosage Notes Dexamethasone 12/17/2015 1 mL Dexamethasone 04/13/2016 1 mL Dexamethasone 09/21/2016 1 mL Dexamethasone 09/23/2016 1 mL Dexamethasone 01/31/2019 1 mL Medical (General) History Medical History History ICD Code Hypertension Hyperlipidemia Esophageal Reflux Esophageal Spasms Diverticulosis Ulcers 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
== END 2024-11-29 23:59 | disposition home or self-care (01) ==
LOC: RAD 14:38
PROVIDERS: PCP Family Medicine; Visit Provider Family Medicine
DX: Z12.31 Encounter for screening mammogram for malignant neoplasm of breast (principal); R92.323 Mammographic fibroglandular density, bilateral breasts
CPT/HCPCS: 77063; 77067

== ENCOUNTER 2024-12-10 08:49 | Outpatient (CLI) | payer MEDICARE, OTHER, SELFPAY ==
--- OUTSIDE RECORDS SUMMARY | 2023-11-14 07:15 | XMS_ITS ---
Author Organization [facility] Address [address] [place] [id number] Care Team Providers Care Contract Admin Name Role Phone Esteban Smith Primary Care Provider Zachary Luevano Unavailable [phone] Allergies Allergen (clinical drug ingredient) Drug/Non Drug Allergy documented on EMR Reaction Allergy Type Onset Date Status Oxytetracycline HCl Unknown Drug Allergy Active Adhesive Unknown Allergy Active codeine Codeine Unknown Drug Allergy Active Results Component Value Reference Range Notes Glucose (In-House) Reviewed date:11/16/2023 01:40:43 PM Interpretation:131 Performing Lab: Notes/Report: 131 blood glucose 131 74 - 106 mg/dL Glycohemoglobin A1c (in hous e) Reviewed date:11/16/2023 01:40:43 PM Interpretation:5.5, normal Performing Lab: Notes/Report: 5.5, normal glycohemoglobin 5.5% 5 - 6.5 % P-Vitamin D 25-Hydroxy Reviewed date:11/16/2023 01:40:43 PM Interpretation:Normal Performing Lab: Notes/Report: Test performed by [facility] [place][note 2][address] [facility] , [address], [place] [address] Michael Rabago MD, Door Slinger CLIA: [id number] Vitamin D 25-Hydroxy 74.0 30.0-100.0 ng/mL Interpretation of Vitamin D 25 OH: < 20 ng/mL - Deficiency 20 - 29 ng/mL - Insufficiency 30 - 100 ng/mL - Sufficiency > 100 ng/mL - Super-therapeutic- toxicity may occur above this level. Clinical correlation required. REASON FOR VISIT REFILLS Medications Medication SIG (Take, Route, Frequency, Duration) Notes Start Date End Date Status Vitamin D (Ergocalciferol) 33292 UNIT 1 capsule Orally Once Weekly Active Ziprasidone HCl 20 MG 1 capsule with samson d Orally once daily; Duration: 90 days Active Omeprazole 40 MG 1 cap(s) Orally Two times a day; Duration: 90 days Active Fluticasone Propionate 50 MCG/ACT 2 spray(s) intranasally once a day; Duration: 30 day(s) Not-Taking Metoprolol Succinate ER 50 MG 1 tablet Orally Once a day; Duration: 90 days Active Irbesartan-hydroCHLOROth iazide 300-12.5 MG 1 tab(s) orally once a day; Duration: 90 days Active Simvastatin 40 MG 1 tablet in the even ing Orally once daily at bedtime; Duration: 90 days Active Immunizations Vaccine Route Administration Date Status Comme nts Fluzone High Dose (65yr and older) IM Intramuscular 11/14/2023 Administered Vital Signs Blood pressure systolic 124 mm Hg 11/14/19 24 Blood pressure diastolic 78 mm Hg 024 Heart Rate 88 /min 11/14/2023 Height 62.50 in 11/14/2023 Weight 189.4 lbs 11/14/2023 BMI 34.09 kg/m2 11/14/2023 Encounters Encounter Location Date Provider Diagnosis [facility] [address] [id number] 11/14/2023 Zachary Luevano Essential hypertensi on, hypertension with unspecified goal I10 ; Hyperlipidemia, unspecified hyperlipidemia type E78.5 ; Gastroesophageal reflux disease, esophagitis presence not specified K21.9 ; Impaired fasting glucose R73.01 ; Vitamin D deficiency E55.9 ; Depression with anxiety F41.8 and Encounter for immunization Z23 Assessments Encounter Date Diagnosis (ICD Code) Assessment Notes Treatment Notes Treatment Clinical Notes Section Notes 11/14/2023 Essential hypertension, hypertension with unspecified goal (ICD-10 - I10) 11/14/2023 Hyperlipidemia, unspecified hyperlipidemia type (ICD-10 - E78.5) 11/14/2023 Gastroesophageal reflux disease, esophagitis presence not specified (ICD-10 - K21.9) 11/14/2023 Impaired fasting glucose (ICD-10 - R73.01) 11/14/2023 Vitamin D deficiency (ICD-10 - E55.9) 11/14/2023 Depression with anxiety (ICD-10 - F41.8) 11/14/2023 Encounter for immunization (ICD-10 - Z23) Plan Of Treatment Medication Medication Name Sig Start Date Stop Date Notes Vitamin D 50 MCG (1999) 1 capsule Orally Once a day Vitamin D (Ergocalciferol) 78122 UNIT 1 capsule Orally Once Weekly Ziprasidone HCl 20 MG 1 capsule with samson d Orally once daily; Duration: 90 days Omeprazole 40 MG 1 cap(s) Orally Two times a day; Duration: 90 days Metoprolol Succinate ER 50 MG 1 tablet O rally Once a day; Duration: 90 days Irbesartan-hydroCHLOROthiazi de 300-12.5 MG 1 tab(s) orally once a day; Duration: 90 days Simvastatin 40 MG 1 tablet in the even ing Orally once daily at bedtime; Duration: 90 days Next Appt Details Follow Up: 6 Months, Reason: Provider Name:Zachary Matthews , 05/13/2025 09:15:00 AM, [address] [facility] [address] [facility], [address], [place], [place], [id number], Progress Notes * ROSITA CHAVEZ ADOB:[birth year] (69 yo F)Acc No.[id number]:11/14/2023 Progress Notes Patient: ROSITA MONSON Provider: Carlota Luevano M.D. :1955 A ge:68 Y S ex:Female Date:11/14/2023 Address:[address] [place] [id number] Pcp:Esteban Smith Subjective: * Chief Complaints: * 1 . REFILLS. * HPI: C ardiology: 68 year old female presents with c/o Blood Pressure Elevated?Pt here for 6 mo f/u on hypertension, states she is doing well and does not have any concerns.? c/o Hyperlipidemia P t is fasting today. * ROS: D ERMATOLOGY: no R tai. n o H phyllis. G ASTROENTEROLOGY: no N ausea. n o V omiting. U ROLOGY: no D ifficulty urinating. n o B lood in urine. 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 * Surgical History: T ubal Ligation 1993, Appendectomy 1974, EGD 2011, Cholecystectomy 12/13/2011, Colonoscopy - 1 Polyp 07/2017, Trigger Thumb Steriod Injection 08/2017, Trigger Thumb Release 01/24/2018. * Hospitalization/Major Diagno stic Procedure: C hest Pains,Esophagal Spasms- [facility] 04/11/2013. * Family History: F ather: alive 83 yrs, CHF, COPD, diabetes, hyperlipidemia. M other: 75 yrs, cancer. P aternal Grand Father: . P aternal Grand Mother: . M aternal Grand Father: . M aternal Grand Mother: . 3 brother(s) , 1 sister(s) . 1 son(s) , 1 daughter(s) . . * Social History: C URRENT TOBACCO USE S moking Status: Patient does NOT smoke. C affeine: yes, frequency:daily. Exercise: yes. Home smoke detector use: yes. Marital Status: . New since last visit: none. Occupation: yes. Past smoking status: no. Occup. exposure: none. Recreational drug use: no. Alcohol: no, Type: , Frequency: ,Years: , Determination:socially. Sexually active: yes. Travel ouside [place]: no. * Medications: T aking Vitamin D (Ergocalciferol) 28893 UNIT Capsule 1 capsule Orally Once Weekly , Taking Vitamin D 50 MCG (2000 UT) Capsule 1 capsule Orally Once a day , Taking Ziprasidone HCl 20 MG Capsule TAKE 1 CAPSULE ONCE DAILY AT BEDTIME , Taking Simvastatin 40 MG Tablet 1 tablet in the evening Orally once daily at bedtime , Taking Metoprolol Succinate ER 50 MG Tablet Extended Release 24 Hour 1 tablet Orally Once a day , Taking Irbesartan-hydroCHLOROthiazide 300-12.5 MG Tablet 1 tab(s) orally once a day , Taking Omeprazole 40 MG Capsule Delayed Release 1 cap(s) Orally Two times a day , Not-Taking Fluticasone Propionate 50 MCG/ACT Suspension 2 spray(s) intranasally once a day , Medication List reviewed and reconciled with the patient * Allergies: C odeine, Oxytetracycline HCl, Adhesive. Objective: * Vitals: W t:189.4, Temp:97.8, BP:124/78, HR:88, Nurse:serena, Ht: 62.50, BMI:34.09. * Examination: C ardiology: General Appearance: p leasant, NAD. H EENT: u nremarkable. H eart sounds: R RR, normal S1, S2. M urmur, click , gallop: n one. L ungs: c lear, no rales or wheezes. E xtremities: n o leg edema. P eripheral pulses:? 2 plus bilateral. Assessment: * Assessment: 1. E ssential hypertension, hypertension with unspecified goal - I10 (Primary) 2 . H yperlipidemia, unspecified hyperlipidemia type - E78.5 3 . G astroesophageal reflux disease, esophagitis presence not specified - K21.9 4 . I mpaired fasting glucose - R73.01 5 . V itamin D deficiency - E55.9 6 .?Depression with anxiety - F41.8 7 . E ncounter for immunization - Z23 ? Plan: * Treatment: 2. H yperlipidemia, unspecified hyperlipidemia type Refill Simvastatin Tablet, 40 MG, 1 tablet in the evening, Orally, once daily at bedtime, 90 days, 90, Refills 1. 3. G astroesophageal reflux disease, esophagitis presence not specified Refill Omeprazole Capsule Delayed Release, 40 MG, 1 cap(s), Orally, Two times a day, 90 days, 180, Refills 1. 4. I mpaired fasting glucose L AB: Glucose (In-House) (Collection Date & Time - 11/14/2023) 1 31 Value Reference Range b lood glucose 131 74 - 106 mg/dL * Sandy Gibbons 11/14/2023 12:00:0 1 PM > Sandy Gibbons 11/16/2023 1:40:37 PM > Pt informed ?LAB: Glycohemoglobin A1c (in house) (Collection Date & Time - 11/14/2023)? 5.5, normal* Value Reference Range g lycohemoglobin 5.5% 5 - 6.5 % * Sandy Gibbons 11/14/2023 12:09:3 1 PM > Sandy Gibbons 11/16/2023 1:40:37 PM > Pt informed 5.?Vitamin D deficiency? Stop Vitamin D Capsule, 50 MCG (2000 UT), 1 capsule, Orally, Once a day;?Refill Vitamin D (Ergocalciferol) Capsule, 51615 UNIT, 1 capsule, Orally, Once Weekly, 13, Refills 1.?LAB: P-Vitamin D 25-Hydroxy (Collection Date & Time - 11/14/2023 10:45 AM)? Normal* Value Reference Range V itamin D 25-Hydroxy 74.0 30.0-100.0 - ng/mL * Sandy Gibbons 11/16/2023 1:40:37 PM > Pt informed 6.?Depression with anxiety? Refill Ziprasidone HCl Capsule, 20 MG, 1 capsule with food, Orally, once daily, 90 days, 90, Refills 1.?? * Immunizations: Fluzone High Dose (65yr and older) : 0.7 mL (Route: Intramuscular) given by Sandy Gibbons on Right Deltoid (Encounter for immunization) * Procedure Codes: G 2211 Complex e/[place], [address] GLUCOSE TEST, 82986 GLYCATED HEMOGLOBIN TEST, Modifiers: QW * Follow Up: 6 Months * Images: Billing Information: * Visit Code: 46614 Office Visit, Est Pt., Level 4. * Procedure Codes: G2211 Complex e/[place]. [address] GLUCOSE TEST. 79835 GLYCATED HEMOGLOBIN TEST. Modifiers: QW * Electronic signature of Melisa Luevano MD on 12/10/2024 at 08:59 AM EDT Sign off status: Pending * Provider: Carlota Luevano M.D. Date: 0 11/14/2023 Generated for Eliezer martin/Val/Katitting on: 1 08:59 AM EDT History and Physical Notes * HPI (History of Present Illness) Category Sub-Category Detail Notes Category Not es Cardiology Blood Pressure Elevated Pt here for 6 mo f/u on hypertension, states she is doing well and does not have any concerns Hyperlipidemia Pt is fasting today Examination Category Sub-Category Detail Notes Category Not es Cardiology Lungs: clear, no rales or wheezes HEENT: unremarkable Heart sounds: RRR, normal S1, S2 Extremities: no leg edema Murmur, click , gallop: none Peripheral pulses: 2 plus bilateral General Appearance: pleasant, NAD
--- OUTSIDE RECORDS SUMMARY | 2024-05-11 05:15 | XMS_ITS ---
Author Organization [facility] Address [address] [place] [id number] Care Team Providers Care Stopperer Assembler Name Role Phone Esteban Smith Primary Care Provider [phone] Zachary Luevano Unavailable [phone] Allergies Allergen (clinical drug ingredient) Drug/Non Drug Allergy documented on EMR Reaction Allergy Type Onset Date Status Oxytetracycline HCl Unknown Drug Allergy Active Adhesive Unknown Allergy Active codeine Codeine Unknown Drug Allergy Active Results Component Value Reference Range Notes Glucose (In-House) Reviewed date:05/13/2024 11:44:25 AM Interpretation:121 Performing Lab: Notes/Report: 121 blood glucose 121 74 - 106 mg/dL P-Comprehensive Metabolic Pa saida ([facility]) Reviewed date:05/13/2024 11:44:25 AM Interpretation: Normal Performing Lab: Notes/Report: Test performed by [facility]0 [facility] , [address], [place] [address] Michael Rabago MD, Rodeo Rider CLIA: [id number] Sodium 142 135-145 mmol/L Potassium 4.3 3.5-5.3 mmol/L Chloride 104 97-108 mmol/L CO2 27 22-32 mmol/L Glucose 99 65-99 mg/dL BUN 12 8-23 mg/dL Creatinine 0.81 0.50-1.00 mg/dL Calcium 9.5 8.6-10.4 mg/dL eGFR by Creatinine 78 >59 mL/min/1.73m2 Protein 6.9 6.0-8.3 g/dL Albumin 4.1 3.5-5.3 g/dL Alkaline Phosphatase 66 35-121 IU/L ALT (SGPT) 18 <5-47 IU/L AST (SGOT) 26 <5-40 IU/L Bilirubin, Total 0.6 <0.2-1.2 mg/dL A/G Ratio 1.5 1.1-2.5 P-Hemoglobin A1C Reviewed date:05/13/2024 11:44:25 AM Interpretation:5.8 Performing Lab: Notes/Report: Test performed by [facility] [address] [place] [address] [address], [place] [address] Michael Rabago MD, Rodeo Rider CLIA: [id number] Hemoglobin A1C 5.8 <5.7 % The following HbA1c ranges recommended by the [place] [employer] (ADA) may be used as an aid in the diagnosis of diabetes mellitus. HbA1c Suggested Diagnosis >=6.5% Diabetic 5.7% - 6.4% Pre-Diabetic <5.7% Non-Diabetic P-Lipid Panel Reviewed date:05/13/2024 11:44:25 AM Interpretation:chol 207, non-hdl 148 Performing Lab: Notes/Report: Test performed by [facility] [address] [place] [address] [address] C, [place] [address] Michael Rabago MD, Rodeo Rider CLIA: [id number] Cholesterol 207 <200 mg/dL Triglycerides 106 <150 mg/dL HDL Cholesterol 59 >39 mg/dL Cholesterol / HDL Ratio 3.51 0.00-4.44 Ratio Non-HDL Cholesterol 148 <130 mg/dL LDL Cholesterol (Calculation) 127 <130 mg/dL LDL Cholesterol Levels* Less than 100 mg/dL Optimal 100 to 129 mg/dL Near Optimal/ Above Optimal 130 to 159 mg/dL Borderline High 160 to 189 mg/dL High 190 mg/dL and above Very High * Categories as recommended by the 2004 ATPIII guidelines LDL/HDL Ratio 2.1 <3.3 Ratio LDL Cholesterol Patient History Test Date: 04/21/2023 LDL Results: 118 Units: mg/dL % Change: - Test Date: 05/11/2024 LDL Results: 127 Units: mg/dL % Change: +7% P-TSH reflex to FT4 Reviewed date:05/13/2024 11:44:25 AM Interpretation: Normal Performing Lab: Notes/Report: Test performed by [facility] [address] [place] [address] , [place] [address] Michael Rabago MD, Rodeo Rider CLIA: [id number] TSH reflex to FT4 3.36 0.43-5.25 mU/L P-Microalbumin/Creatinine, R andom Urine Sample Reviewed date:05/13/2024 11:44:25 AM Interpretation: Normal Performing Lab: Notes/Report: Test performed by [facility] [address] [place] [address] , [address], [place] [address] Michael Rabago MD, Rodeo Rider CLIA: [id number] Albumin/Creatinine Ratio, Urine 5 0-30 ug/m g Microalbumin, Urine, Random 0.7 Creatinine, Urine 140.2 P-Vitamin D 25-Hydroxy Reviewed date:05/13/2024 11:44:25 AM Interpretation: Normal Performing Lab: Notes/Report: Test performed by [facility], [address] , [address], [place] [address] Michael Rabago MD, Rodeo Rider CLIA: [id number] Vitamin D 25-Hydroxy 64.7 30.0-100.0 ng/mL Interpretation of Vitamin D 25 OH: < 20 ng/mL - Deficiency 20 - 29 ng/mL - Insufficiency 30 - 100 ng/mL - Sufficiency > 100 ng/mL - Super-therapeutic- toxicity may occur above this level. Clinical correlation required. Estimated Average Glucose Reviewed date:05/13/2024 11:44:25 AM Interpretation: Normal Performing Lab: Notes/Report: Test performed by [facility] [address] [place] [address] , [address], [place] [address] Michael Rabago MD, Rodeo Rider CLIA: [id number] Estimated Average Glucose (eAG) 120 Estimated Average Glucose (eAG) is calculated using the equation eAG = (28.7 x HbA1c) - 46.7 based on the guidelines established by the ADA. If the patient has certain diseases including kidney disease, sickle cell anemia, thalassemia, or is taking medications such as dapsone, erythropoietin, or iron, eAG should not be evaluated. REASON FOR VISIT 6 Month Check Up Medications Medication SIG (Take, Route, Frequency, Duration) Notes Start Date End Date Status Simvastatin 40 MG TAKE 1 TABLET ONCE D AILY INTHE EVENING AT BEDTIME; Duration: 90 days Active Metoprolol Succinate ER 50 MG TAKE 1 TABLET ONCE DAILY; Duration: 90 days Active Irbesartan-hydroCHLOROthiaz terese 300-12.5 MG TAKE 1 TABLET ONCE DAILY; Duration: 90 days Active Ziprasidone HCl 20 MG TAKE 1 CAPSULE ONC E DAILY WITH FOOD; Duration: 90 days Active Vitamin D (Ergocalciferol) 38129 UNIT 1 capsule Orally Once Weekly Active Voquezna 10 MG 1 tablet Orally Once a day; Duration: 30 day(s) 05/11/2024 Active Vital Signs Blood pressure systolic 120 mm Hg 05/12/19 25 Blood pressure diastolic 78 mm Hg 025 Heart Rate 81 /min 05/11/2024 Height 62.50 in 05/11/2024 Weight 183 lbs 05/11/2024 BMI 32.93 kg/m2 05/11/2024 Encounters Encounter Location Date Provider Diagnosis [facility] [address] [place], [place] [id number] 05/11/2024 Zachary Luevano Essential hypertensi on, hypertension with unspecified goal I10 ; Hyperlipidemia, unspecified hyperlipidemia type E78.5 ; LPRD (laryngopharyngeal reflux disease) K21.9 ; Impaired fasting glucose R73.01 and Vitamin D deficiency E55.9 Assessments Encounter Date Diagnosis (ICD Code) Assessment Notes Treatment Notes Treatment Clinical Notes Section Notes 05/11/2024 Essential hypertension, hypertension with unspecified goal (ICD-10 - I10) 05/11/2024 Hyperlipidemia, unspecified hyperlipidemia type (ICD-10 - E78.5) 05/11/2024 LPRD (laryngopharyngeal reflux disease) (ICD-10 - K21.9) 05/11/2024 Impaired fasting glucose (ICD-10 - R73.01) 05/11/2024 Vitamin D deficiency (ICD-10 - E55.9) Plan Of Treatment Medication Medication Name Sig Start Date Stop Date Notes Simvastatin 40 MG TAKE 1 TABLET ONCE D AILY INTHE EVENING AT BEDTIME; Duration: 90 days Metoprolol Succinate ER 50 MG TAKE 1 TAB LET ONCE DAILY; Duration: 90 days Irbesartan-hydroCHLOROthiazi de 300-12.5 MG TAKE 1 TABLET ONCE DAILY; Duration: 90 days Ziprasidone HCl 20 MG TAKE 1 CAPSULE ONC E DAILY WITH FOOD; Duration: 90 days Omeprazole 40 MG TAKE 1 CAPSULE TWICE DAILY Voquezna 10 MG 1 tablet Orally Once a day; Duration: 30 day(s) 05/11/2024 Next Appt Details Follow Up: 6 Months, Reason: Provider Name:Zachary Matthews , 05/13/2025 09:15:00 AM, [address] [facility], [address], [place], [place], [id number], Progress Notes * ROSITA CHAVEZ ADOB:[birth year] (69 yo F)Acc No.[id number]:05/11/2024 Progress Notes Patient: ROSITA MONSON Provider: Carlota Luevano M.D. :1955 A ge:69 Y S ex:Female Date:05/11/2024 Address:[address] [place] [address] [place], [id number] Pcp:Esteban Smith Subjective: * Chief Complaints: * 1 . 6 Month Check Up. 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 * Surgical History: T ubal Ligation 1993, Appendectomy 1974, EGD 2011, Cholecystectomy 12/13/2011, Colonoscopy - 1 Polyp 07/2017, Trigger Thumb Steriod Injection 08/2017, Trigger Thumb Release 01/24/2018. * Hospitalization/Major Diagno stic Procedure: C hest Pains,Esophagal Spasms- [facility] 04/11/2013. * Family History: F ather: alive [...] ouside US: no. * Medications: T aking Simvastatin 40 MG Tablet TAKE 1 TABLET ONCE DAILY INTHE EVENING AT BEDTIME , Taking Ziprasidone HCl 20 MG Capsule TAKE 1 CAPSULE ONCE DAILY WITH FOOD , Taking Metoprolol Succinate ER 50 MG Tablet Extended Release 24 Hour TAKE 1 TABLET ONCE DAILY , Taking Omeprazole 40 MG Capsule Delayed Release TAKE 1 CAPSULE TWICE DAILY , Taking Irbesartan-hydroCHLOROthiazide 300-12.5 MG Tablet TAKE 1 TABLET ONCE DAILY , Taking Vitamin D (Ergocalciferol) 02848 UNIT Capsule 1 capsule Orally Once Weekly , Discontinued Fluticasone Propionate 50 MCG/ACT Suspension 2 spray(s) intranasally once a day , Medication List reviewed and reconciled with the patient * Allergies: C odeine, Oxytetracycline HCl, Adhesive. Objective: * Vitals: W t:183, Temp:97.8, BP:120/78, HR:81, Nurse:kk, Ht: 62.50, BMI:32.93. * Examination: C ardiology: General Appearance: p [...] unspecified hyperlipidemia type - E78.5 3 . L PRD (laryngopharyngeal reflux disease) - K21.9 4 . I mpaired fasting glucose - R73.01 5. V itamin D deficiency - E55.9 Plan: * Treatment: Value Reference Range A /G Ratio 1.5 1.1-2.5 - * A lbumin 4.1 3.5-5.3 - g/dL * A lkaline Phosphatase 66 35-121 - IU/L * A LT (SGPT) 18 <5-47 - IU/L * A ST (SGOT) 26 <5-40 - IU/L * B ilirubin, Total 0.6 <0.2-1.2 - mg/dL * B UN 12 8-23 - mg/dL * C alcium 9.5 8.6-10.4 - mg/dL * C hloride 104 97-108 - mmol/L * C O2 27 22-32 - mmol/L * C reatinine 0.81 0.50-1.00 - mg/dL * G lucose 99 65-99 - mg/dL * P otassium 4.3 3.5-5.3 - mmol/L * S odium 142 135-145 - mmol/L * P rotein 6.9 6.0-8.3 - g/dL * e GFR by Creatinine 78 >59 - mL/min/1.73m2 * Anh De Jesus 05/13/2024 11:44 :17 AM >See phone encounter ?LAB: P-Microalbumin/Creatinine, Random Urine Sample (Collection Date & Time - 05/11/2024 01:35 PM)?Normal* Value Reference Range A lbumin/Creatinine Ratio, Urine 5 0-30 - ug /mg * C reatinine, Urine 140.2 - mg/dL * M icroalbumin, Urine, Random 0.7 - mg/dL * Anh De Jesus 05/13/2024 11:44 :17 AM >See phone encounter 2.?Hyperlipidemia, unspecified hyperlipidemia type? Refill Simvastatin Tablet, 40 MG, TAKE 1 TABLET ONCE DAILY INTHE EVENING AT BEDTIME, 90 days, 90 Tablet, Refills 1.?LAB: P-Comprehensive Metabolic Panel (CMP) (Collection Date & Time - 05/11/2024 01:35 PM)?Normal* Value Reference Range A /G Ratio 1.5 1.1-2.5 - * A lbumin 4.1 3.5-5.3 - g/dL * A lkaline Phosphatase 66 35-121 - IU/L * A LT (SGPT) 18 <5-47 - IU/L * A ST (SGOT) 26 <5-40 - IU/L * B ilirubin, Total 0.6 <0.2-1.2 - mg/dL * B UN 12 8-23 - mg/dL * C alcium 9.5 8.6-10.4 - mg/dL * C hloride 104 97-108 - mmol/L * C O2 27 22-32 - mmol/L * C reatinine 0.81 0.50-1.00 - mg/dL * G lucose 99 65-99 - mg/dL * P otassium 4.3 3.5-5.3 - mmol/L * S odium 142 135-145 - mmol/L * P rotein 6.9 6.0-8.3 - g/dL * e GFR by Creatinine 78 >59 - mL/min/1.73m2 * Anh De Jesus 05/13/2024 11:44 :17 AM >See phone encounter ?LAB: P-Lipid Panel (Collection Date & Time - 05/11/2024 01:35 PM)?chol 207, non-hdl 148* Value Reference Range C holesterol / HDL Ratio 3.51 0.00-4.44 - Ratio * C holesterol 207 H <200 - mg/dL * H DL Cholesterol 59 >39 - mg/dL * L DL Cholesterol (Calculation) 127 <130 - mg/d L * L DL/HDL Ratio 2.1 <3.3 - Ratio * N on-HDL Cholesterol 148 H <130 - mg/dL * T riglycerides 106 <150 - mg/dL * Anh De Jesus 05/13/2024 11:44 :17 AM >See phone encounter ?LAB: P-TSH reflex to FT4 (Collection Date & Time - 05/11/2024 01:35 PM)? Normal* Value Reference Range T SH reflex to FT4 3.36 0.43-5.25 - mU/L * Anh De Jesus 05/13/2024 11:44 :17 AM >See phone encounter 3.?LPRD (laryngopharyngeal reflux disease)? Stop Omeprazole Capsule Delayed Release, 40 MG, TAKE 1 CAPSULE TWICE DAILY;?Start Voquezna Tablet, 10 MG, 1 tablet, Orally, Once a day, 30 day(s), 30.??4.?Impaired fasting glucose?LAB: P-Hemoglobin A1C (Collection Date & Time - 05/11/2024 01:35 PM)?5.8* Value Reference Range H emoglobin A1C 5.8 H <5.7 - % * Anh De Jesus 05/13/2024 11:44 :17 AM >See phone encounter ?LAB: Glucose (In-House) (Collection Date & Time - 05/11/2024)?121* Value Reference Range b lood glucose 121 74 - 106 mg/dL * Sandy Gibbons 05/11/2024 11:52:1 5 AM > Anh De Jesus 05/13/2024 11:44:17 AM >See phone encounter 5.?Vitamin D deficiency?LAB: P-Vitamin D 25-Hydroxy (Collection Date & Time - 05/11/2024 01:35 PM)? Normal* Value Reference Range V itamin D 25-Hydroxy 64.7 30.0-100.0 - ng/mL * Anh De Jesus 05/13/2024 11:44 :17 AM >See phone encounter 6.?Others? Refill Ziprasidone HCl Capsule, 20 MG, TAKE 1 CAPSULE ONCE DAILY WITH FOOD, 90 days, 90 Capsule, Refills 1.?? * Labs: * L ab: Estimated Average Glucose (Collection Date & Time - 05/11/2024 01:35 PM) N ormal Value Reference Range E stimated Average Glucose 120 - mg/dL * [facility], support 05/12/2024 04:20:06 : This order was created by the Interface. Anh De Jesus 05/13/2024 11:44:17 AM >See phone encounter * Procedure Codes: G 2211 Complex e/[place], [address] GLUCOSE TEST, 3044F HG A1C LEVEL LT 7.0%, 3074F SYST BP LT 130 MM HG, 3078F DIAST BP < 80 MM HG * Follow Up: 6 Months * Images: Billing Information: * Visit Code: 98688 Office Visit, Est Pt., Level 4. * Procedure Codes: G2211 Complex e/[place]. [address] GLUCOSE TEST. 3044F HG A1C LEVEL LT 7.0%. 3074F SYST BP LT 130 MM HG. 3078F DIAST BP < 80 MM HG. * Electronic signature of Melisa Luevano MD on 12/10/2024 at 08:59 AM EDT Sign off status: Pending * Provider: Carlota Luevano M.D. Date: 0 05/11/2024 Generated for Eliezer martin/Val/eTransmitting on: 1 08:59 AM EDT History and [...]
--- OUTSIDE RECORDS SUMMARY | 2024-05-21 06:30 | XMS_ITS ---
Author Organization [facility] Address [address] [place] [id number] Care Team Providers Care Fire Inspector Name Role Phone Esteban Smith Primary Care Provider Zachary Luevano Unavailable [phone] Liza Dumont Unavailable [phone] Allergies Allergen (clinical drug ingredient) Drug/Non Drug [...] 10 day(s) 05/21/2024 Active Vitamin D (Ergocalciferol) 19911 UNIT 1 capsule Orally Once Weekly Active Voquezna 10 MG 1 tablet Orally Once a day; Duration: 30 day(s) 05/11/2024 Active Vital Signs Blood pressure systolic 124 mm Hg 05/22/19 25 Blood pressure diastolic 76 mm Hg 025 Heart Rate 57 /min 05/21/2024 Height 62.50 in 05/21/2024 Weight 184.2 lbs 05/21/2024 BMI 33.15 kg/m2 05/21/2024 Encounters Encounter Location Date Provider Diagnosis [facility] [address] [place] [address] 36 [facility] [address] [place], [place] [id number] 05/21/2024 Liza Dumont Sinusitis, acute J01.90 Assessments [...] Name:Zachary Matthews ry, 05/13/2025 09:15:00 AM, [address] [facility] 36 [facility], [address], [place], [place], [phone], Progress Notes * KATHYROSITA ADOB:[birth year] (69 yo F)Acc No.[id number]:05/21/2024 Progress Notes Patient: ROSITA MONSON Provider: ROSALINO Stone :1955 A ge:69 Y S ex:Female Date:05/21/2024 Address:[address] [place] [phone] Pcp:Esteban Smith Subjective: * Chief Complaints: * [...] Esophageal Reflux, Esophageal Spasms, Diverticulosis, Ulcers, 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 * Surgical History: T ubal Ligation 1993, Appendectomy 1974, EGD 2011, Cholecystectomy 12/13/2011, Colonoscopy - 1 Polyp 07/2017, Trigger Thumb Steriod Injection 08/2017, Trigger Thumb Release 01/24/2018. * Hospitalization/Major Diagno stic Procedure: C hest Pains,Esophagal Spasms- [facility] 04/11/2013. * Family History: F ather: [...] * Medications: T aking Vitamin D (Ergocalciferol) 01947 UNIT Capsule 1 capsule Orally Once Weekly [...] * Images: Billing Information: * Visit Code: 20919 Office Visit, Est Pt., Level 3. * Procedure Codes: G2211 Complex e/m visit add on. 3074F SYST BP LT 130 MM HG. 3078F DIAST BP < 80 MM HG. * Electronic signature of Jackie Dumont APRN on 12/10/2024 at 08:58 AM EDT Sign off status: Pending * Provider: ROSALINO Stone Date: 0 05/21/2024 Generated for Eliezer martin/Val/Katitting on: 1 08:58 AM EDT History and Physical Notes * [...]
--- OUTSIDE RECORDS SUMMARY | 2024-11-22 09:18 | XMS_ITS ---
Author Organization [facility] Address [address] [facility] [address] [place] [id number] Care Team Providers Care General Assistant Name Role Phone Esteban Smith Primary Care Provider Zachary Luevano [phone] Encounters Encounter Location Date Provider Diagnosis [facility] [address] [place] [id number] 11/22/2024 Esteban Smith Encounter for screening for malignant neoplasm of respiratory organs Z12.2 and History of nicotine dependence Z87.891 Assessments Encounter Date Diagnosis (ICD Code) Assessment Notes Treatment Notes Treatment Clinical Notes Section Notes 11/22/2024 Encounter for screening for malignant neoplasm of respiratory organs (ICD-10 - Z12.2) 11/22/2024 History of nicotine dependence (ICD-10 - Z87.891) Plan Of Treatment Pending Test Test Name Order Date CT Scan : Chest, low dose 11/22/2024 Next Appt Details Provider Name:Zachary Matthews ry, 05/13/2025 09:15:00 AM, [address], [address], [place], [id number], Progress Notes * ROSITA CHAVEZ ADOB:[birth year] (69 yo F)Acc No.[id number]:11/22/2024 Patient: Morris ELYSSASMOOTHROSITA A :1955 A ge:69 Y S ex:Female Address:[address], [place] [address] Subjective: * Chief Complaints: * * Medical History: * Surgical History: * Hospitalization/Major Diagno stic Procedure: * Medications: Objective: * Vitals: * Physical Examination: Assessment: * Assessment: 1. E ncounter for screening for malignant neoplasm of respiratory organs - Z12.2 (Primary) 2 . H istory of nicotine dependence - Z87.891 Plan: * Treatment: 2.?History of nicotine dependence?Imaging: CT Scan : Chest, low dose* Jayne Sotomayor 11/22/2024 01:1 9:47 PM EDT > an we see if this can be scheduled along with the mammo and Bne Density if possible * Procedure Codes: * true * Date: Generated for Eliezer martin/Val/Silvia on: 1 08:59 AM EDT
--- NOTE | 2024-12-10 08:52 | XR_ITS ---
FINAL REPORT CLINICAL HISTORY: SCREENING COMPARISON: 07/09/2022 FINDINGS: Using L1-4, the bone mineral density of the spine is 1.108 g/cm2, corresponding to T-score of 0.6, within normal limits. Previously was 1.007 with a T-score of -0.4. Using the left hip, the bone mineral density of the total hip is 0.950 g/cm2, corresponding to a T-score of 0.1, within normal limits. Previously was 0.957 with a T-score of 0.1. Using the right hip, the bone mineral density of the femoral neck is 0.879 g/cm2, corresponding to a T-score of 0.3, within normal limits. Previously was 0.895 with a T-score of 0.4. FRAX not reported because all T-scores at or above -1.0. NOTE: T-score: Standard deviation compared with peak bone mass of young adult mean. *Following the recommendations of the International Society of Bone densitometry, classification of hip BMD is based on the lower of two T-scores; total hip or femoral neck. IMPRESSION: Normal bone mineral density of the lumbar spine and hips. Reviewed, Interpreted and Dictated by Micha Paris MD Transcribed by Agnes Patel Authenticated and [facility][1]
--- NOTE | 2024-12-10 08:53 | CT_ITS ---
FINAL REPORT TECHNIQUE: Thin section axial images were obtained from the lung apices to the upper abdomen by computed tomography. Reformatted images were obtained and reviewed. This study was performed with techniques to keep radiation doses al low as reasonably achievable (ALARA). Individualized dose reduction techniques using automated exposure control or adjustment of mA and/or kV according to the patient's size were employed. CLINICAL HISTORY: SCREENING FORMER SMOKER 20 YEARS 1/2 PPd COMPARISON: None FINDINGS: CHEST CT LOW DOSE 69-year-old female, former smoker, [id number] history. CTDI vol (mGy): 2.7 DLP (mGy-cm): 86.2 There is no axillary adenopathy. There is no mediastinal or hilar mass or adenopathy. The heart is normal in size. There is no pericardial or pleural effusion. A moderate-sized hiatal hernia is present. There are scattered calcified granulomas bilaterally. No airspace infiltrate is identified. Lung window images demonstrate no suspicious infiltrate or nodule. Limited images of the upper abdomen demonstrate a posterior benign-appearing cyst in the liver measuring 5.8 x 3.5 cm in size. IMPRESSION: Lung-RADS category 1. Recommend 12 month follow up low dose chest CT. Reviewed, Interpreted and Dictated by Micha Paris MD Transcribed by Lennie Mcgee Authenticated and [facility]
== END 2024-12-10 23:59 | disposition home or self-care (01) ==
LOC: RAD 08:50
PROVIDERS: PCP Family Medicine; Visit Provider Family Medicine
DX: M81.0 Age-related osteoporosis without current pathological fracture (principal); Z87.891 Personal history of nicotine dependence; Z78.0 Asymptomatic menopausal state; Z12.2 Encounter for screening for malignant neoplasm of respiratory organs
CPT/HCPCS: 71271; 77080